=== PATIENT | female | born 2000 | race Caucasian/White ===

== ENCOUNTER 2022-09-07 10:27 | Outpatient (OUT) | payer BC, SELFPAY ==
[2022-09-07 11:30] LABS: HCG Quantitative 2866 mIU/mL
== END 2022-09-07 10:28 ==
PROVIDERS: PCP Family Medicine; Visit Provider Obstetrics & Gynecology
DX: N92.6 Irregular menstruation, unspecified (principal)
CPT/HCPCS: 36415; 84702

== ENCOUNTER 2022-09-09 10:34 | Outpatient (RCR) | payer BC, SELFPAY ==
[2022-09-09 12:00] LABS: HCG Quantitative 6195 mIU/mL
== END 2022-10-06 15:58 | disposition home or self-care (01) ==
LOC: LAB 10:34
PROVIDERS: Obstetrics & Gynecology; PCP Family Medicine
DX: N92.6 Irregular menstruation, unspecified (principal)
CPT/HCPCS: 36415; 84702

== ENCOUNTER 2022-09-16 14:49 | Outpatient (OUT) | payer BC, SELFPAY ==
--- NOTE | 2022-09-16 | US_ITS ---
[address] [address] Patient Name: CAROLYNN MACKEY MRN: [id number] date: 2000 Sex: F Assigned Patient Location: US Current Patient Location: US Accession/Order Number: [id number] Exam Date: 09/16/2022 15:00 Report Date: 09/16/2022 17:49 At the request of: RAMONE AN Procedure: US OB transvaginal EXAMINATION: US OB transvaginal HISTORY: MISSED PERIOD COMPARISON: No relevant comparison available. FINDINGS: Rasmussen intrauterine gestation Gestational sac: 1.57 cm, 5 weeks 6 days CRL: 4.2 mm, 6 weeks 1 day Yolk sac: 0.25 cm Heart rate: 106 bpm Cervix: Closed, 4.5 cm Uterus: Normal, anteverted, anteflexed The right ovary is normal Left ovary is not visualized Clinical age: 6 weeks 1 day Clinical NICOLE: 05/11/2023 . IMPRESSION: Viable rasmussen intrauterine gestation measuring 6 weeks 1 day Electronically authenticated by: CHEPE SAXENA Date: 09/16/2022 17:49
== END 2022-09-16 14:50 ==
LOC: US 14:51
PROVIDERS: PCP Family Medicine; Visit Provider Obstetrics & Gynecology
DX: Z34.91 Encounter for supervision of normal pregnancy, unspecified, first trimester (principal)
CPT/HCPCS: 76817

== ENCOUNTER 2022-10-14 16:09 | Outpatient (OUT) | payer BC, SELFPAY ==
[2022-10-14 16:55] LABS: Basophils Percent Auto 0.2 % (0.2-2.0); Eosinophils Percent Auto 0.4 % (0.9-7.0); Hematocrit 39.2 % (36.0-48.0); Hemoglobin 13.4 g/dL (12.0-16.0); Immature Granulocytes Abs Auto 0.03 10^3/uL (0.00-0.03); Immature Granulocytes Pct Auto 0.3 % (0.0-0.5); Lymphocytes Absolute Auto 1.4 10^3/uL (1.2-3.8); Lymphocytes Percent Auto 12.7 % (20.5-60.0); Mean Corpuscular HGB Conc 34.2 g/dL (29.9-35.2); Mean Corpuscular Volume 90.7 fL (81.0-99.0); Monocytes Absolute Auto 0.5 10^3/uL (0.3-0.8); Monocytes Percent Auto 4.1 % (1.7-12.0); Neutrophils Absolute Auto 9.2 10^3/uL (1.4-6.5); Neutrophils Percent Auto 82.3 % (43.0-75.0); Platelet Count 291 10^3/uL (150-450); Red Blood Count 4.32 10^6/uL (4.20-5.40); Red Cell Distribution Width 12.7 % (11.0-15.0); White Blood Count 11.1 10^3/uL (4.0-11.0)
[2022-10-14 17:07] LABS: Estimated Average Glucose 94 mg/dL; Glycohemoglobin A1C 4.9 % (4.5-6.2)
[2022-10-14 18:07] LABS: Thyroid Stimulating Hormone 1.999 uIU/mL (0.358-3.740)
[2022-10-16 06:09] LABS: HBsAg Screen Negative (Negative); HCV Ab Non Reactive (Non Reactive); HIV Ab/p24 Ag Screen Non Reactive (Non Reactive); Rubella Antibodies, IgG 9.02 index (Immune >0.99)
[2022-10-16 10:08] LABS: Rapid Plasma Reagin, Quant Non Reactive (NonRea<1:1)
== END 2022-10-14 16:10 | disposition home or self-care (01) ==
PROVIDERS: PCP Family Medicine; Visit Provider Obstetrics & Gynecology
DX: Z31.430 Encounter of female for testing for genetic disease carrier status for procreative management (principal); N92.5 Other specified irregular menstruation
CPT/HCPCS: 36415; 83036; 84443; 85025; 86592; 86706; 86762; 86803; 86850; 86900; 86901; 87086; 87389

== ENCOUNTER 2022-12-23 17:11 | Outpatient (OUT) | payer BC, OTHER, SELFPAY ==
--- NOTE | 2022-12-23 17:16 | US_ITS ---
[address] [address] Patient Name: CAROLYNN MACKEY MRN: [id number] date: 2000 Sex: F Assigned Patient Location: US Current Patient Location: Accession/Order Number: [id number] Exam Date: 12/23/2022 17:56 Report Date: 12/24/2022 15:38 At the request of: JOVANY ISABEL Procedure: US OB anatomy EXAMINATION: US OB transvaginal, US OB anatomy HISTORY: SECOND TRIMESTER Z34.92 COMPARISON: No relevant comparison available. TECHNIQUE: Transabdominal sonographic examination was performed for obstetrical and evaluation. FINDINGS: Number: 1 Heart Rate: 145.9 bpm H.B. /min Amniotic Fluid Volume: Subjectively normal Placental Location: ANTERIOR with lower margin 4.1 cm from os. Cervix Length: 5 cm , closed. ANATOMY: Normal Structures -cerebellum, choroid plexus, cisterna magna, lateral cerebral ventricles, orbits, midline falx, hard palate, four-chamber heart, RVOT, LVOT, stomach, kidneys, bladder, umbilical cord insertion into abdomen, three-vessel cord, cervical spine, thoracic spine, lumbar spine, sacral spine, right upper extremity, left upper extremity, right lower extremity, left lower extremity. SUBOPTIMALLY SEEN: None ABNORMALITIES: None BIOMETRY: BPD: 4.6 cm 19 weeks 6 days HC: 17.6 cm 20 weeks 1 days AC: 15.3 cm 20 weeks 4 days FL: 3.1 cm 19 weeks 6 days EFW:335.9 grams; FL/AC: 20.6 FL/BPD: 68.8 HC/AC: 1.1 GESTATIONAL AGE: Age by EDC: 20 weeks 1 days NICOLE by EDC: 05/11/2023 Age by current US: 20 weeks 1 days NICOLE by current US: 05/11/2023 US/US OB anatomy IMPRESSION: 1. Single live intrauterine with growth detailed above. Electronically authenticated by: LYNNETTE KENNEDY Date: 12/24/2022 15:38
--- NOTE | 2022-12-23 17:17 | US_ITS ---
[address] [address] Patient Name: CAROLYNN MACKEY MRN: [id number] date: 2000 Sex: F Assigned Patient Location: US Current Patient Location: Accession/Order Number: [id number] Exam Date: 12/23/2022 17:56 Report Date: 12/24/2022 15:38 At the request of: JOVANY ISABEL Procedure: US OB transvaginal EXAMINATION: US OB transvaginal, US OB anatomy HISTORY: SECOND TRIMESTER Z34.92 COMPARISON: No relevant comparison available. TECHNIQUE: Transabdominal sonographic examination was performed for obstetrical and evaluation. FINDINGS: Number: 1 Heart Rate: 145.9 bpm H.B. /min Amniotic Fluid Volume: Subjectively normal Placental Location: ANTERIOR with lower margin 4.1 cm from os. Cervix Length: 5 cm , closed. ANATOMY: Normal Structures -cerebellum, choroid plexus, cisterna magna, lateral cerebral ventricles, orbits, midline falx, hard palate, four-chamber heart, RVOT, LVOT, stomach, kidneys, bladder, umbilical cord insertion into abdomen, three-vessel cord, cervical spine, thoracic spine, lumbar spine, sacral spine, right upper extremity, left upper extremity, right lower extremity, left lower extremity. SUBOPTIMALLY SEEN: None ABNORMALITIES: None BIOMETRY: BPD: 4.6 cm 19 weeks 6 days HC: 17.6 cm 20 weeks 1 days AC: 15.3 cm 20 weeks 4 days FL: 3.1 cm 19 weeks 6 days EFW:335.9 grams; FL/AC: 20.6 FL/BPD: 68.8 HC/AC: 1.1 GESTATIONAL AGE: Age by EDC: 20 weeks 1 days NICOLE by EDC: 05/11/2023 Age by current US: 20 weeks 1 days NICOLE by current US: 05/11/2023 US/US OB transvaginal IMPRESSION: 1. Single live intrauterine with growth detailed above. Electronically authenticated by: LYNNETTE KENNEDY Date: 12/24/2022 15:38
== END 2022-12-23 17:12 | disposition home or self-care (01) ==
LOC: US 17:12
PROVIDERS: PCP Family Medicine; Visit Provider Physician Assistant
DX: Z34.92 Encounter for supervision of normal pregnancy, unspecified, second trimester (principal)
CPT/HCPCS: 76805; 76817

== ENCOUNTER 2023-01-05 12:39 | Emergency (ER) | payer BC, OTHER, SELFPAY ==
[2023-01-05 12:44] VITALS: BP 117/68; PULSE 70; RESP 15; TEMP 36.6; O2SAT 98; BMI 24.9
--- NOTE | 2023-01-05 12:48 | ED.GENADUL1 ---
HPI - General Adult General Chief complaint: Nausea/Vomiting/Diarrhea Stated complaint: VOMITING BLOOD 22 WEEKS Time Seen by Provider: 01/05/23 12:45 Source: patient Mode of arrival: walk-in History of Present Illness HPI narrative: 22-year-old female who is twenty-two weeks presented because she vomited some blood in it. She is no longer nauseous. No hematochezia or melena. She doesn't complain of abdominal pain. She's been feeling the baby move around. No fever or cough or shortness of breath. This happened today. No vaginal bleeding. Related Data Allergies Allergy/AdvReac Type Severity Reaction Status Date / Time No Known Drug Allergies Allergy Verified 01/05/23 12:57 Review of Systems ROS Narrative A ten point review of systems is negative except as noted above. Exam Narrative Exam Narrative: Nurses note and vital signs reviewed and patient is not hypoxic. General: The patient appears well and in no apparent distress. Patient is resting comfortably on cart. Skin: Warm, dry, no pallor noted. There is no rash noted. Head: Normocephalic, atraumatic Eye: Normal conjunctiva, no drainage Ears, Nose, Mouth, and Throat: oral mucosa is moist. Nares patent. Cardiovascular: Regular Rate and Rhythm Respiratory: Patient is in no distress, no accessory muscle use, lungs are clear to auscultation, no wheezing, rales or rhonchi Back: non-tender GI: gravid and soft and nontender Musculoskeletal: The patient has no evidence of calf tenderness, no pitting edema, symmetrical pulses noted bilaterally Neurological: A&O, normal speech Psychiatric: Cooperative Constitutional Vital Signs, click to edit/add: Last Vital Signs Temp 97.8 F 01/05/23 12:44 Pulse 70 01/05/23 12:44 Resp 15 01/05/23 12:44 BP 117/68 01/05/23 12:44 Pulse Ox 98 01/05/23 12:44 O2 Del Method Room Air 01/05/23 12:44 Course Vital Signs Vital signs: Vital Signs Temperature 97.8 F 01/05/23 12:44 Pulse Rate 70 01/05/23 12:44 Respiratory Rate 15 01/05/23 12:44 Blood Pressure 117/68 01/05/23 12:44 Pulse Oximetry 98 01/05/23 12:44 Oxygen Delivery Method Room Air 01/05/23 12:44 Temperature 97.8 F 01/05/23 12:44 Pulse Rate 70 01/05/23 12:44 Respiratory Rate 15 01/05/23 12:44 Blood Pressure 117/68 01/05/23 12:44 Pulse Oximetry 98 01/05/23 12:44 Oxygen Delivery Method Room Air 01/05/23 12:44 Medical Decision Making MDM Narrative Medical decision making narrative: The patient had hematemesis. Her hemoglobin is 12.7. She has had no recurrence of this issue here and has been able to drink Gatorade. Findings are discussed with the patient and her family and the case will be discussed with her PUBLIC SPEAKER. Differential Diagnosis Differential Diagnosis: hematemesis, ulcer, gastritis Lab Data Lab results reviewed: Yes I reviewed the patient's lab results Labs: Lab Results 01/05/23 Range/Units 12:54 WBC 13.6 H (4.0-11.0) 10^3/uL RBC 4.10 L (4.20-5.40) 10^6/uL Hgb 12.7 (12.0-16.0) g/dL Hct 37.9 (36.0-48.0) % MCV 92.4 (81.0-99.0) fL MCH 31.0 (26.7-34.0) pg MCHC 33.5 (29.9-35.2) g/dL RDW 13.0 (11.0-15.0) % Plt Count 248 (150-450) 10^3/uL MPV 9.5 (9.5-13.5) fL Neut % (Auto) 83.0 H (43.0-75.0) % Lymph % (Auto) 11.6 L (20.5-60.0) % [place] % (Auto) 4.0 (1.7-12.0) % Eos % (Auto) 0.7 L (0.9-7.0) % Baso % (Auto) 0.3 (0.2-2.0) % Neut # (Auto) 11.3 H (1.4-6.5) 10^3/uL Lymph # (Auto) 1.6 (1.2-3.8) 10^3/uL [place] # (Auto) 0.5 (0.3-0.8) 10^3/uL Eos # (Auto) 0.1 (0.0-0.7) 10^3/uL Baso # (Auto) 0.0 (0.0-0.1) 10^3/uL Abs Immat Gran (auto) 0.05 H (0.00-0.03) 10^3/uL Imm/Tot Granulo (auto) 0.4 (0.0-0.5) % Sodium 134 L (136-145) mmol/L Potassium 3.9 (3.5-5.1) mmol/L Chloride 100 (98-107) mmol/L Carbon Dioxide 24.2 (21.0-32.0) mmol/L Anion Gap 13.7 BUN 9.0 (7.0-18.0) mg/dL Creatinine 0.61 (0.55-1.02) mg/dL Est GFR ( Amer) >60 (>=60) Est GFR (Non-Af Amer) >60 (>=60) BUN/Creatinine Ratio 14.8 Glucose 86 (74-106) mg/dL Calcium 8.8 (8.5-10.1) mg/dL Discharge Plan Discharge Chief Complaint: Nausea/Vomiting/Diarrhea Clinical Impression: Hematemesis Patient Disposition: Home, Self-Care Time of Disposition Decision: 14:01 Condition: Good Mode of Transportation: Private Vehicle Instructions: Acute Nausea and Vomiting (ED), Hematemesis (ED) Stand Alone Forms: Portal Instructions Referrals: HASEEB CELAYA [Primary Care Provider] - 1 week
[2023-01-05 13:11] LABS: Basophils Percent Auto 0.3 % (0.2-2.0); Eosinophils Absolute Auto 0.1 10^3/uL (0.0-0.7); Eosinophils Percent Auto 0.7 % (0.9-7.0); Hematocrit 37.9 % (36.0-48.0); Hemoglobin 12.7 g/dL (12.0-16.0); Immature Granulocytes Abs Auto 0.05 10^3/uL (0.00-0.03); Immature Granulocytes Pct Auto 0.4 % (0.0-0.5); Lymphocytes Absolute Auto 1.6 10^3/uL (1.2-3.8); Lymphocytes Percent Auto 11.6 % (20.5-60.0); Mean Corpuscular HGB Conc 33.5 g/dL (29.9-35.2); Mean Corpuscular Volume 92.4 fL (81.0-99.0); Mean Platelet Volume 9.5 fL (9.5-13.5); Monocytes Absolute Auto 0.5 10^3/uL (0.3-0.8); Neutrophils Absolute Auto 11.3 10^3/uL (1.4-6.5); Platelet Count 248 10^3/uL (150-450); White Blood Count 13.6 10^3/uL (4.0-11.0)
[2023-01-05 13:20] LABS: Anion Gap 13.7; BUN Creatinine Ratio 14.8; Calcium 8.8 mg/dL (8.5-10.1); Carbon Dioxide 24.2 mmol/L (21.0-32.0); Chloride 100 mmol/L (98-107); Estimated GFR (African America >60 (>=60); Estimated GFR (Non-African Ame >60 (>=60); Glucose 86 mg/dL (74-106); Potassium 3.9 mmol/L (3.5-5.1); Sodium 134 mmol/L (136-145)
--- NOTE | 2023-01-05 13:37 | PC.NURSE ---
gatorade given to pt to use for PO challenge
== END 2023-01-05 14:20 | disposition home or self-care (01) ==
PROVIDERS: Emergency Provider Emergency Medicine; PCP Family Medicine
DX: O26.892 Other specified pregnancy related conditions, second trimester (principal); K92.0 Hematemesis; Z3A.22 22 weeks gestation of pregnancy
CPT/HCPCS: 36415; 80048; 85025; 99283

== ENCOUNTER 2023-02-22 07:51 | Outpatient (OUT) | payer BC, SELFPAY ==
[2023-02-22 08:57] LABS: Basophils Percent Auto 0.3 % (0.2-2.0); Eosinophils Absolute Auto 0.1 10^3/uL (0.0-0.7); Eosinophils Percent Auto 0.7 % (0.9-7.0); Hematocrit 33.7 % (36.0-48.0); Hemoglobin 11.2 g/dL (12.0-16.0); Immature Granulocytes Abs Auto 0.09 10^3/uL (0.00-0.03); Immature Granulocytes Pct Auto 0.8 % (0.0-0.5); Lymphocytes Absolute Auto 1.6 10^3/uL (1.2-3.8); Lymphocytes Percent Auto 13.2 % (20.5-60.0); Mean Corpuscular HGB Conc 33.2 g/dL (29.9-35.2); Mean Corpuscular Hemoglobin 30.9 pg (26.7-34.0); Mean Corpuscular Volume 93.1 fL (81.0-99.0); Mean Platelet Volume 9.4 fL (9.5-13.5); Monocytes Absolute Auto 0.6 10^3/uL (0.3-0.8); Monocytes Percent Auto 5.3 % (1.7-12.0); Neutrophils Absolute Auto 9.5 10^3/uL (1.4-6.5); Neutrophils Percent Auto 79.7 % (43.0-75.0); Platelet Count 236 10^3/uL (150-450); Red Blood Count 3.62 10^6/uL (4.20-5.40); Red Cell Distribution Width 13.1 % (11.0-15.0); White Blood Count 11.9 10^3/uL (4.0-11.0)
[2023-02-22 09:51] LABS: Glucose 1 Hour 105 mg/dL
--- OUTSIDE RECORDS SUMMARY | 2023-03-22 21:48 | XMS_ITS | CCD ---
Author Name Unknown Address [address] [place] [address] Organization [facility] Care Team Providers Care Hand Cigar Making Supervisor Name Role Phone BELTRAN, CATHERINE S Unavailable Unavailable BELTRAN, CATHERINE S Unavailable Unavailable BELTRAN, CATHERINE S Unavailable Unavailable BELTRAN, CATHERINE S Unavailable Unavailable SHARATH CARDOZO Attending Unavailable BRISEYDA BROCK Primary Care Unavailable KARASIK, DR GALVEZ Admitting Unavailable KARASIK, DR GALVEZ Attending Unavailable KARASIK, DR GALVEZ Consulting Unavailable KARASIK, DR GALVEZ Consulting Unavailable NATALIYA, DR PACK Attending Unavailable NATALIYA, DR PACK Admitting Unavailable KARASIK, DR GALVEZ Admitting Unavailable KARASIK, DR GALVEZ Attending Unavailable KARASIK, DR GALVEZ Consulting Unavailable CHALO, JOVANY Attending Unavailable NATALIYA, RAMONE Attending Unavailable Problems Active Problems Problem Classification Problem Date Documented Date Episodic/Chronic Immunizations and screening for infectious disease (4 sources) Encounter for screening for infections with a predominantly sexual mode of transmission; Translations: [ENC SCREEN INFECTIONS SEXL TRANSMS] Onset: 11-12-2021 Episodic Influenza (1 source) Influenza due to other identified influenza virus with other respiratory manifestations; Translations: [Influenza due to other identified influenza virus with other respiratory manifestations] Onset: 06-20-2018 Episodic Other infections; including parasitic (4 sources) Personal history of other infectious and parasitic diseases; Translations: [PERSONAL HX OTH INF AND PARASITIC DZ] Onset: 09-16-2021 Episodic Unclassified (1 source) Knee Pain / [id number]() Onset: 05-16-2017 Past or Other Problems Problem Classification Problem Date Documented Da te Episodic/Chronic Other non-traumatic joint disorders (1 source) Knee pain; Translations: [Knee Pain] Onset: 05-16-2017 Episodic Results Test Name Value Interpretation Reference Range Facil ity CHLAMYDIA/GONOCOCCUS OTTO (SW AB/URINE/PAPon 11-17-2021 Chlamydia trachomatis, OTTO Negative Normal Negative [facility] Comment on above: Performed By: #### C T/NGNA #### [facility] [address] [place] [address] Dr. Navneet Landeros Neisseria gonorrhoeae, OTTO Negative Normal Negative [facility] Comment on above: Performed By: #### C T/NGNA #### [facility] [address] [place] [address] Dr. Navneet Landeros VAGINITIS/VAGINOSIS DNA PROB Acosta 11-15-2021 Mei species Negative Normal Negative [facility] Comment on above: Performed By: #### V AGINT #### [facility] [address] [place] [address] Dr. Navneet Landeros Gardnerella vaginalis Positive Abnormal Negative [facility] Comment on above: Performed By: #### V AGINT #### [facility] [address] [place] [address] Dr. Navneet Landeros Trichomonas vaginalis Negative Normal Negative [facility] Comment on above: Performed By: #### V AGINT #### [facility] [address] [place] [address] Dr. Navneet Landeros CHLAMYDIA/GONOCOCCUS OTTO (SW AB/URINE/PAPon 09-19-2021 Chlamydia trachomatis, OTTO Negative Normal Negative [facility] Comment on above: Performed By: #### C T/NGNA #### [facility] [address] [place] [address] Dr. Navneet Landeros Neisseria gonorrhoeae, OTTO Negative Normal Negative [facility] Comment on above: Performed By: #### C T/NGNA #### [facility] [address] [place] [address] Dr. Navneet Landeros VAGINITIS/VAGINOSIS DNA PROB Acosta 09-18-2021 Mei species Negative Normal Negative [facility] Comment on above: Performed By: #### V AGINT #### [facility] [address] [place] [address] Dr. Navneet Landeros Gardnerella vaginalis Negative Normal Negative [facility] Comment on above: Performed By: #### V AGINT #### [facility] [address] [place] [address] Dr. Navneet Landeros Trichomonas vaginalis Negative Normal Negative [facility] Comment on above: Performed By: #### V AGINT #### [facility] [address] [place] [address] Dr. Navneet Landeros CHLAMYDIA/GONOCOCCUS OTTO ( AB/URINE/PAPon 05-02-2021 Chlamydia trachomatis, OTTO Positive Abnormal Negative [facility] Comment on above: Result Comment: . Performed By: #### C T/NGNA #### [facility] [address] [place] [address] Dr. Navneet Landeros Neisseria gonorrhoeae, OTTO Negative Normal Negative [facility] Comment on above: Performed By: #### C T/NGNA #### [facility] [address] [place] [address] Dr. Navneet Landeros VAGINITIS/VAGINOSIS DNA PROB Acosta 05-01-2021 Mei species Negative Normal Negative [facility] Comment on above: Performed By: #### V AGINT #### [facility] [address] [place] [address] Dr. Navneet Landeros Gardnerella vaginalis Positive Abnormal Negative [facility] Comment on above: Performed By: #### V AGINT #### [facility] [address] [place] [address] Dr. Navneet Landeros Trichomonas vaginalis Negative Normal Negative [facility] Comment on above: Performed By: #### V AGINT #### [facility] [address] [place] [address] Dr. Navneet Landeros Bowel Disorders [place] Atypical pANCA Negative Normal Negative [facility] Comment on above: Performed By: #### C OVID-19 JUNE, SOFIANEG, UHCG, ADDONUAPLUS #### [address] Bowel Disorders [place] Negative Normal Negative [facility] Comment on above: Performed By: #### C OVID-19 JUNE, SOFIANEG, UHCG, ADDONUAPLUS #### [address] Note Normal . [facility] Comment on above: Result Comment: Sugg estive of Crohn's disease. Subsequent testing with the Crohn's Disease Prognostic Profile ([id number]) that includes antiglycan antibodies AMCA, ALCA, ACCA, and Kathleen may aid in the differentiation of clinical forms of CD and prognosis of disease progression. Performed at: - [facility] [id number] Management Trainee Marketing: Darling Dubon MD, Phone: [phone] PERFORMED BY: [place] [address] PATHOLOGIST CHEMIST ENZYMES STEPHENIE THORPE M.D. Performed By: #### C OVID-19 JUNE, SOFIANEG, UHCG, ADDONUAPLUS #### [address] Saccharomyces cerevisiae, IgG 58.4 High 0.0-24 .9 [facility] Comment on above: Result Comment: Nega tive <20.0 Equivocal 20.1 - 24.9 Positive >or= 25.0 Performed By: #### C OVID-19 JUNE, SOFIANEG, UHCG, ADDONUAPLUS #### [address] C-Reactive Proteinon 021 C-Reactive Protein 0.6 mg/dL Normal 0.0-1.0 [facility] Comment on above: Result Comment: PERF ORMED BY: [place] [address] PATHOLOGIST CHEMIST ENZYMES STEPHENIE THORPE M.D. Performed By: #### C OVID-19 JUNE, SOFIANEG, UHCG, ADDONUAPLUS #### [address] Erythrocyte Sedimentation Ra ramez 02-18-2021 ESR (Bld) [Velocity] 2 mm/h Normal 0-19 [facility] Comment on above: Result Comment: PERF ORMED BY: [place] [address] PATHOLOGIST CHEMIST ENZYMES STEPHENIE THORPE M.D. Performed By: #### C OVID-19 JUNE, SOFIANEG, UHCG, ADDONUAPLUS #### [facility] [address] [place] [address] [place] HCG,Urineon 02-18-2021 Beta HCG ( test) Ql (U) Negative Normal [facility] Comment on above: Result Comment: PERF ORMED BY: [place] [address] PATHOLOGIST CHEMIST ENZYMES STEPHENIE THORPE M.D. Performed By: #### C OVID-19 JUNE, SOFIANEG, UHCG, ADDONUAPLUS #### [facility] [address] [id number] [facility] Benito 02-18-2021 L Specimen: [id number] Received: 02/19/21 Status: SONIA Lopez Num: [id number] Spec Type: Surgical Subm Dr: Charan Romo MD Tissues: A Colon Biopsy (ILEITIS BX) Procedures: HE Stain/2, Gross/Micro L4 Patient Age/Sex Location Account Attending Physician Deanna Isaac 20/F [id number] Charan Romo MD SPEC NUM: [id number] RECD: 02/19/21 STATUS: SONIA LOPEZ NUM: [id number] SIDRA: 02/18/21- DR: Charan Romo MD ENTERED: 02/19/[address] [facility] [address]: ARMAND TYPE: Surgical DEPT: S ORDERED: HE Stain/2, Gross/Micro L4 ORDERED: HE Stain/2, Gross/Micro L4 Pathological Diagnosis Ileum, biopsy: - 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 Entirely submitted in one cassette labeled A1. (SM/JS) Microscopic Description Two glass slides with H E stained material have been examined. The microscopic findings support the above pathologic diagnosis. [id number] Specimen: [id number] Received: 02/19/21 Status: SONIA Lopez Num: [id number] Spec Type: Surgical Subm Dr: hCaran Romo MD Tissues: A Colon Biopsy (ILEITIS BX) Procedures: HE Stain/2, Gross/Micro L4 Patient: Deanna Isaac [id number] (Continued) Signed (signature on file) Stephenie Thorpe MD 02/20/21 [facility] COVID-19 Antigenon 1 COVID-19 Antigen Healthcare Worker?: N June Reference June Reference Negative SARS-CoV+SARS-CoV-2 (COVID-19) Ag [Presence] in Respiratory specimen by Rapid immunoassay Negative for SARS Antigen by SATYA COVID19 Blank Space June Disclaimer Negative results, from patients with symptom June Disclaimer onset beyond five days, should be treated as June Disclaimer presumptive and confirmation with a molecular June Disclaimer assay, if necessary, for patient management, June Disclaimer may be performed. Negative results do not rule June Disclaimer out COVID-19 and should not be used as the sole June Disclaimer basis for treatment or patient management June Disclaimer decisions, including infection control decisions. June Disclaimer Negative results should be considered in the June Disclaimer context of a patient's recent exposures, history June Disclaimer and the presence of clinical signs and symptoms June Disclaimer consistent with COVID-19. COVID19 Blank Space June Disclaimer The June SARS Antigen SATYA does not differentiate June Disclaimer between SARS-CoV and SARS-CoV-2. COVID19 Blank Space June Disclaimer This test was developed and its performance June Disclaimer characteristic determined by [employer] and June Disclaimer validated at [facility]. This June Disclaimer test has not been FDA cleared or approved. This June Disclaimer test has been authorized by FDA under an Emergency Use June Disclaimer Authorization (EUA). This test has been validated June Disclaimer in accordance with the FDA's Guidance Document (Policy June Disclaimer for Diagnostics Testing in Laboratories Certified to June Disclaimer Perform High Complexity Testing under CLIA prior to June Disclaimer Emergency Use Authorization for Coronavirus June Disclaimer isease-2018 during the Public Health Emergency) June Disclaimer issued on July 05, 2019. This test is only authorized June Disclaimer for the duration of time the declaration that June Disclaimer circumstances exist justifying the authorization of June Disclaimer the emergency use of in vitro diagnostic tests for June Disclaimer detection of SARS-CoV-2 virus and/or diagnosis of June Disclaimer COVID-19 infection under section 564(b)(1) of the June Disclaimer Act, 21 U.S.C. 360bbb-3(b)(1), unless the June Disclaimer authorization is terminated or revoked sooner. PERFORMED BY: [place] [address] PATHOLOGIST CHEMIST ENZYMES STEPHENIE THORPE M.D. [facility] Comment on above: Performed By: #### C OVID-19 JUNE, SOFIANEG, UHCG, ADDONUAPLUS #### [address] June Ag Negativeon 02-17-20 21 June Ag Negative Negative Normal Negative [facility] Comment on above: Result Comment: This is a duplicate June SARS Antigen (SATYA) result to be used for statistical tracking purpose only. PERFORMED BY: [place] [address] PATHOLOGIST CHEMIST ENZYMES STEPHENIE THORPE M.D. Performed By: #### C OVID-19 JUNE, SOFIANEG, UHCG, ADDONUAPLUS #### [address] Basic Metabolic Panelon 11-0 Calcium [Mass/Vol] 9.5 mg/dL Normal 8.2-10.2 [facility] Comment on above: Performed By: #### L IPASE, MG, HEPATIC, CBC, TSH3, BMP #### [address] Chloride [Moles/Vol] 102 mmol/L Normal 95-114 [facility] Comment on above: Performed By: #### L IPASE, MG, HEPATIC, CBC, TSH3, BMP #### [facility] [address] CO2 [Moles/Vol] 22.6 mmol/L Normal 22.0-30.0 [facility] Comment on above: Performed By: #### L IPASE, MG, HEPATIC, CBC, TSH3, BMP #### [facility] [address] Creatinine [Mass/Vol] 0.77 mg/dL Normal 0.44-1.03 [facility] Comment on above: Performed By: #### L IPASE, MG, HEPATIC, CBC, TSH3, BMP #### [facility] [address] Creatinine Clr Calc Pharmacy 102.32 [facility] Comment on above: Performed By: #### L IPASE, MG, HEPATIC, CBC, TSH3, BMP #### [address] Estimated GFR ( Natasha > 60 [facility] Comment on above: Result Comment: GFR estimated reference range: According to KDOQI guidelines, <60 ml/min/1.73m2 is sufficient to diagnose a patient with chronic kidney disease. Performed By: #### L IPASE, MG, HEPATIC, CBC, TSH3, BMP #### [facility] [address] Estimated GFR (Non- Am > 60 [facility] Comment on above: Performed By: #### L IPASE, MG, HEPATIC, CBC, TSH3, BMP #### [address] Glucose [Mass/Vol] 93 mg/dL Normal 70-100 [facility] Comment on above: Result Comment: [place] om Glucose Reference Range is dependent on time and content of last meal. Glucose of more than 200 mg/dL in a nonstressed, ambulatory subject supports the diagnosis of Diabetes Mellitus. ADA recommended reference range Performed By: #### L IPASE, MG, HEPATIC, CBC, TSH3, BMP #### [facility] [address] Potassium [Moles/Vol] 3.8 mmol/L Normal 3.5-5.1 [facility] Comment on above: Performed By: #### L IPASE, MG, HEPATIC, CBC, TSH3, BMP #### [facility] [address] Sodium [Moles/Vol] 135 mmol/L Low 136-146 [facility] Comment on above: Performed By: #### L IPASE, MG, HEPATIC, CBC, TSH3, BMP #### [facility] [address] Urea nitrogen [Mass/Vol] 11 mg/dL Normal 9-23 [facility] Comment on above: Performed By: #### L IPASE, MG, HEPATIC, CBC, TSH3, BMP #### [facility] [address] COVID-19 Antigenon 1 COVID-19 Antigen Healthcare Worker?: N June Reference June Reference Negative SARS-CoV+SARS-CoV-2 (COVID-19) Ag [Presence] in Respiratory specimen by Rapid immunoassay Negative for SARS Antigen by SATYA COVID19 Blank Space June Disclaimer Negative results, from patients with symptom June Disclaimer onset beyond five days, should be treated as Jnue Disclaimer presumptive and confirmation with a molecular June Disclaimer assay, if necessary, for patient management, June Disclaimer may be performed. Negative results do not rule June Disclaimer out COVID-19 and should not be used as the sole June Disclaimer basis for treatment or patient management June Disclaimer decisions, including infection control decisions. June Disclaimer Negative results should be considered in the June Disclaimer context of a patient's recent exposures, history June Disclaimer and the presence of clinical signs and symptoms June Disclaimer consistent with COVID-19. COVID19 Blank Space June Disclaimer The June SARS Antigen SATYA does not differentiate June Disclaimer between SARS-CoV and SARS-CoV-2. COVID19 Blank Space June Disclaimer This test was developed and its performance June Disclaimer characteristic determined by [employer] and June Disclaimer validated at [facility]. This June Disclaimer test has not been FDA cleared or approved. This June Disclaimer test has been authorized by FDA under an Emergency Use June Disclaimer Authorization (EUA). This test has been validated June Disclaimer in accordance with the FDA's Guidance Document (Policy June Disclaimer for Diagnostics Testing in Laboratories Certified to June Disclaimer Perform High Complexity Testing under CLIA prior to June Disclaimer Emergency Use Authorization for Coronavirus June Disclaimer during the Public Health Emergency) June Disclaimer issued on July 05, 2019. This test is only authorized June Disclaimer for the duration of time the declaration that June Disclaimer circumstances exist justifying the authorization of June Disclaimer the emergency use of in vitro diagnostic tests for June Disclaimer detection of SARS-CoV-2 virus and/or diagnosis of June Disclaimer COVID-19 infection under section 564(b)(1) of the June Disclaimer Act, 21 U.S.C. 360bbb-3(b)(1), unless the June Disclaimer authorization is terminated or revoked sooner. PERFORMED BY: [facility] [place] [address] PATHOLOGIST CHEMIST ENZYMES STEPHENIE THORPE M.D. [facility] Comment on above: Performed By: #### C OVID-19 DENIZ WATKINS UHCG, SUNNIUAPLUS #### [address] Complete Blood Count Auto Di ffon 02-04-2021 Basophils (Bld) [#/Vol] 0.0 10*3/uL Normal 0.0-0.1 [facility] Comment on above: Result Comment: PERF ORMED BY: [place] [address] PATHOLOGIST CHEMIST ENZYMES STEPHENIE THORPE M.D. Performed By: #### L IPASE, MG, HEPATIC, CBC, TSH3, BMP #### [address] Basophils/100 WBC (Bld) 0.4 % Normal . [facility] Comment on above: Performed By: #### L IPASE, MG, HEPATIC, CBC, TSH3, BMP #### [address] Eosinophils (Bld) [#/Vol] 0.1 10*3/uL Normal 0.0-0.7 [facility] Comment on above: Performed By: #### L IPASE, MG, HEPATIC, CBC, TSH3, BMP #### [address] Eosinophils/100 WBC (Bld) 1.0 % Normal . [facility] Comment on above: Performed By: #### L IPASE, MG, HEPATIC, CBC, TSH3, BMP #### [address] Erythrocyte distribution wid th (RBC) [Ratio] 13.3 % Normal 11.9-15.3 [facility] Comment on above: Performed By: #### L IPASE, MG, HEPATIC, CBC, TSH3, BMP #### [address] Hematocrit (Bld) [Volume fraction] 39.9 % Normal 36.0-46.0 [facility] Comment on above: Performed By: #### L IPASE, MG, HEPATIC, CBC, TSH3, BMP #### [address] Hemoglobin (Bld) [Mass/Vol] 13.6 g/dL Normal 12.0-16. 0 [facility] Comment on above: Performed By: #### L IPASE, MG, HEPATIC, CBC, TSH3, BMP #### [address] Lymphocytes (Bld) [#/Vol] 1.2 10*3/uL Normal 1.20-4.8 [facility] Comment on above: Performed By: #### L IPASE, MG, HEPATIC, CBC, TSH3, BMP #### [address] Lymphocytes/100 WBC (Bld) 20.5 % Normal . [facility] Comment on above: Performed By: #### L IPASE, MG, HEPATIC, CBC, TSH3, BMP #### [address] MCH (RBC) [Entitic mass] 30.8 pg Normal 25.0-35.0 [facility] Comment on above: Performed By: #### L IPASE, MG, HEPATIC, CBC, TSH3, BMP #### [address] MCV (RBC) [Entitic vol] 90.8 fL Normal 78-102 F [facility] Comment on above: Performed By: #### L IPASE, MG, HEPATIC, CBC, TSH3, BMP #### [address] Mean Corpuscular HGB Conc 34.0 g/dL Normal 31.0-37.0 [facility] Comment on above: Performed By: #### L IPASE, MG, HEPATIC, CBC, TSH3, BMP #### [address] Monocytes (Bld) [#/Vol] 0.3 10*3/uL Normal 0.1-1.00 [facility] Comment on above: Performed By: #### L IPASE, MG, HEPATIC, CBC, TSH3, BMP #### [facility] [address] Monocytes/100 WBC (Bld) 5.3 % Normal . F [facility] Comment on above: Performed By: #### L IPASE, MG, HEPATIC, CBC, TSH3, BMP #### [facility] [address] Neutrophils (Bld) [#/Vol] 4.3 10*3/uL Normal 1.2-7.7 [facility] Comment on above: Performed By: #### L IPASE, MG, HEPATIC, CBC, TSH3, BMP #### [facility] [address] Neutrophils/100 WBC (Bld) 72.8 % Normal . [facility] Comment on above: Performed By: #### L IPASE, MG, HEPATIC, CBC, TSH3, BMP #### [address] Nucleated RBC/100 WBC (Bld) [Ratio] 0.1 % Normal 0-0.5 [facility] Comment on above: Performed By: #### L IPASE, MG, HEPATIC, CBC, TSH3, BMP #### [address] Platelet mean volume (Bld) [Entitic vol] 6.8 fL Normal 6.3-10.7 [facility] Comment on above: Performed By: #### L IPASE, MG, HEPATIC, CBC, TSH3, BMP #### [address] Platelets (Bld) [#/Vol] 332 10*3/uL Normal 150-450 [facility] Comment on above: Performed By: #### L IPASE, MG, HEPATIC, CBC, TSH3, BMP #### [address] RBC (Bld) [#/Vol] 4.39 10*6/uL Normal 4.10-5.10 [facility] Comment on above: Performed By: #### L IPASE, MG, HEPATIC, CBC, TSH3, BMP #### [facility] [address] [place] [address] [place] WBC (Bld) [#/Vol] 5.9 10*3/uL Normal 4.5-13.5 [facility] Comment on above: Performed By: #### L IPASE, MG, HEPATIC, CBC, TSH3, BMP #### [facility] [address] [place] [address] [place] Dipstick and Microscopicon 1 04-06-2020 Appearance (U) Clear Normal Clear [facility] Comment on above: Order Comment: Name Collection Type:: Clean-Voided Midstream Performed By: #### C OVID-19 JUNE, SOFIANEG, UHCG, ADDONUAPLUS #### [address] Bacteria,Urine None Seen Normal None Seen [facility] Comment on above: Order Comment: Name Collection Type:: Clean-Voided Midstream Performed By: #### C OVID-19 JUNE, SOFIANEG, UHCG, ADDONUAPLUS #### [facility] [address] [place] [address] [place] Bilirubin,Urine Negative Normal Negative [facility] Comment on above: Order Comment: Name Collection Type:: Clean-Voided Midstream Performed By: #### C OVID-19 JUNE, SOFIANEG, UHCG, ADDONUAPLUS #### [facility] [address] [place] [address] [place] Color (U) Yellow Normal Yellow [facility] Comment on above: Order Comment: Name Collection Type:: Clean-Voided Midstream Performed By: #### C OVID-19 JUNE, SOFIANEG, UHCG, ADDONUAPLUS #### [facility] [address] [place] [address] [place] Glucose Ql (U) Normal Normal Normal [facility] Comment on above: Order Comment: Name Collection Type:: Clean-Voided Midstream Performed By: #### C OVID-19 JUNE, SOFIANEG, UHCG, ADDONUAPLUS #### [address] [place] [address] [place] Hyaline Casts,Urine 0-8 Normal 0-8 [facility] Comment on above: Order Comment: Name Collection Type:: Clean-Voided Midstream Performed By: #### C OVID-19 JUNE, SOFIANEG, UHCG, ADDONUAPLUS #### [address] Ketones Ql (U) 3+ High Negative [facility] Comment on above: Order Comment: Name Collection Type:: Clean-Voided Midstream Performed By: #### C OVID-19 JUNE, SOFIANEG, UHCG, ADDONUAPLUS #### [address] Leukocyte esterase Test stri p Ql (U) Negative Normal Negative [facility] Comment on above: Order Comment: Name Collection Type:: Clean-Voided Midstream Performed By: #### C OVID-19 JUNE, SOFIANEG, UHCG, ADDONUAPLUS #### [address] Nitrite,Urine Negative Normal Negative [facility] Comment on above: Order Comment: Name Collection Type:: Clean-Voided Midstream Performed By: #### C OVID-19 JUNE, SOFIANEG, UHCG, ADDONUAPLUS #### [place] [address] [place] Occult Blood,Urine 2+ High Negative [facility] Comment on above: Order Comment: Name Collection Type:: Clean-Voided Midstream Performed By: #### C OVID-19 JUNE, SOFIANEG, UHCG, ADDONUAPLUS #### [place] [address] [place] pH (U) 5.5 [pH] Normal 5.0-9.0 [facility] Comment on above: Order Comment: Name Collection Type:: Clean-Voided Midstream Performed By: #### C OVID-19 JUNE, SOFIANEG, UHCG, ADDONUAPLUS #### [place] [address] [place] Protein,Urine Negative Normal Negative [facility] Comment on above: Order Comment: Name Collection Type:: Clean-Voided Midstream Performed By: #### C OVID-19 JUNE, SOFIANEG, UHCG, ADDONUAPLUS #### [address] RBC,Urine 10-19 High 0-4 [facility] Comment on above: Order Comment: Name Collection Type:: Clean-Voided Midstream Performed By: #### C OVID-19 JUNE, SOFIANEG, UHCG, ADDONUAPLUS #### [address] Specificy [place],Urine 1.023 Normal 1.001-1.030 [facility] Comment on above: Order Comment: Name Collection Type:: Clean-Voided Midstream Performed By: #### C OVID-19 JUNE, SOFIANEG, UHCG, ADDONUAPLUS #### [address] Squamous Epithelial Cell,Urine 5-9 High 0-2 [facility] Comment on above: Order Comment: Name Collection Type:: Clean-Voided Midstream Performed By: #### C OVID-19 JUNE, SOFIANEG, UHCG, ADDONUAPLUS #### [address] Urobilinogen,Urine Normal Normal Normal [facility] Comment on above: Order Comment: Name Collection Type:: Clean-Voided Midstream Performed By: #### C OVID-19 JUNE, SOFIANEG, UHCG, ADDONUAPLUS #### [address] WBC,Urine 3-4 Normal 0-4 [facility] Comment on above: Order Comment: Name Collection Type:: Clean-Voided Midstream Performed By: #### C OVID-19 JUNE, SOFIANEG, UHCG, ADDONUAPLUS #### [address] ECG 12 lead ECGon 11-03-2021 ECG 12 lead ECG [facility] Main [place] [address] [place] [id number] Electrocardiograph Report Signed Patient: Deanna Isaac MR#: [id number] : 2000 Acct:[id number] Age/Sex: 20 / F ADM Date: 02/04/21 Loc: ER Room: Type: [facility] ER Attending Dr: Ordering Provider: Micheal Hernandez DO Date of Service: 02/04/2106/23/1051 ECG/ECG 12 lead ECG: Abdominal Pain Copies to: Test Reason : Blood Pressure : / mmHG Vent. Rate : 070 BPM Atrial Rate : 070 BPM P-R Int : 118 ms QRS Dur : 074 ms QT Int : 398 ms P-R-T Axes : 035 082 052 degrees QTc Int : 429 ms Normal sinus rhythm Confirmed by Micheal HERNANDEZ DO ([id number]) on 02/04/2021 1:25:48 PM Referred By: Electronically Signed By:Micheal HERNANDEZ DO Transcribed By: MUS Signed By Micheal Hernandez DO 1 04/06/20 1325 [facility] HCG,Urineon 02-04-2021 Beta HCG ( test) Ql (U) Negative [facility] Comment on above: Order Comment: Name Collection Type:: Clean-Voided Midstream Result Comment: PERF ORMED BY: [place] [address] PATHOLOGIST CHEMIST ENZYMES STEPHENIE THORPE M.D. Performed By: #### C OVID-19 JUNE, SOFIANEG, UHCG, ADDONUAPLUS #### [facility] [address] [place] [address] [facility] Hepatic Panelon 02-04-2021 Albumin [Mass/Vol] 4.1 g/dL Normal 3.2-5.5 [facility] Comment on above: Performed By: #### L IPASE, MG, HEPATIC, CBC, TSH3, BMP #### [facility] [address] [place], [place] [id number] [facility] Albumin/Globulin [Mass ratio] 1.3 {ratio} Normal [facility] Comment on above: Performed By: #### L IPASE, MG, HEPATIC, CBC, TSH3, BMP #### [facility] [address] [place] [address] ALP [Catalytic activity/Vol] 55 U/L Normal 32-92 [facility] Comment on above: Performed By: #### L IPASE, MG, HEPATIC, CBC, TSH3, BMP #### [facility] [address] [place] [address] ALT [Catalytic activity/Vol] 23 U/L Normal 10-60 [facility] Comment on above: Performed By: #### L IPASE, MG, HEPATIC, CBC, TSH3, BMP #### [address] AST [Catalytic activity/Vol] 23 U/L Normal 10-42 [facility] Comment on above: Performed By: #### L IPASE, MG, HEPATIC, CBC, TSH3, BMP #### [address] Bilirubin [Mass/Vol] 1.2 mg/dL Normal 0.3-1.2 [facility] Comment on above: Performed By: #### L IPASE, MG, HEPATIC, CBC, TSH3, BMP #### [address] Bilirubin,Indirect 1.1 mg/dL Normal [facility] Comment on above: Performed By: #### L IPASE, MG, HEPATIC, CBC, TSH3, BMP #### [address] Bilirubin.indirect [Mass/Vol] 0.1 mg/dL Normal 0.0-0. 4 [facility] Comment on above: Performed By: #### L IPASE, MG, HEPATIC, CBC, TSH3, BMP #### [address] Globulin (S) [Mass/Vol] 3.2 g/dL Normal [facility] Comment on above: Performed By: #### L IPASE, MG, HEPATIC, CBC, TSH3, BMP #### [facility] [address] Protein [Mass/Vol] 7.3 g/dL Normal 6.1-7.9 [facility] Comment on above: Performed By: #### L IPASE, MG, HEPATIC, CBC, TSH3, BMP #### [facility] [address] Lipaseon 02-04-2021 Lipase [Catalytic activity/Vol] 24.0 U/L Normal 22-5 1 [facility] Comment on above: Performed By: #### L IPASE, MG, HEPATIC, CBC, TSH3, BMP #### [address] Magnesiumon 02-04-2021 Magnesium [Mass/Vol] 2.1 mg/dL Normal 1.6-2.6 [facility] Comment on above: Performed By: #### L IPASE, MG, HEPATIC, CBC, TSH3, BMP #### [address] June Ag Negativeon 02-05-20 21 June Ag Negative Negative Normal Negative [facility] Comment on above: Result Comment: This is a duplicate June SARS Antigen (SATYA) result to be used for statistical tracking purpose only. PERFORMED BY: [place] [address] PATHOLOGIST CHEMIST ENZYMES STEPHENIE THORPE M.D. Performed By: #### C OVID-19 JUNE, SOFIANEG, UHCG, ADDONUAPLUS #### [address] Thyroid Stimulating Hormoneo n 02-04-2021 TSH Qn 1.87 m[IU]/L Normal 0.45-5.33 [facility] Comment on above: Result Comment: PERF ORMED BY: [place] [address] PATHOLOGIST CHEMIST ENZYMES STEPHENIE THORPE M.D. Performed By: #### L IPASE, MG, HEPATIC, CBC, TSH3, BMP #### [facility] [address] [place] [id number] [facility] Flu A/B Ag Detectionon 06-20 Flu A/B Ag Detection Specimen Descriptio n .NASOPHARYNGEAL SWAB Special Requests NOT REPORTED Direct Exam POSITIVE for Influenza A Antigen NEGATIVE for Influenza B Antigen Report Status FINAL 06/20/2018 [facility] Comment on above: Performed By: #### F LUAD #### [facility] [address] [place] [address] Management Trainee Marketing: Avery Hanson MD PROCEDUREon 05-16-2017 [facility] NOTES [facility] Encounters Encounter Date Encounter Type Care Provider Facility Start: 03-08-2023 End: 03-08-2023 ambulatory RAMONE AN Not Available Start: 02-22-2023 End: 02-22-2023 ambulatory JOVANY ISABEL Not Available Start: 11-12-2021 End: 11-12-[address] LENNY SEVILLA Facility:[facility] Start: 09-16-2021 End: 09-16-[address] LENNY SEVILLA Facility:[facility] Start: 04-29-2021 End: 04-29-[address] LENNY SEVILLA Facility:[facility] Start: 06-20-2018 End: 06-20-2018 Emergency department patient visit SHARATH CARDOZO [facility] Start: 05-16-2017 Ambulatory [facility] Start: 05-16-2017 Ambulatory [facility] Procedures Date Procedure Procedure Detail Performing Clinician Start: 06-20-2018 [facility] influenza [facility] HEMANT CARDOZO Payers Date Payer Category Payer Medicaid [id number] 2022 Unknown [id number] 2018 Unknown [id number] 2002 Unknown [id number] 2.16.84 [id number] 2002 Unknown [id number] 2.16.84 [id number] 2002 Unknown [id number] 2002 Unknown [id number] 1976 Unknown [id number] 2.16.84 [id number] 1976 Unknown [id number] 2.16.84 [id number] 1959 Unknown [id number] Summary Purpose Family History No Family History Records FoundNo Family History Records FoundNo Family History Records FoundNo Family History Records FoundNo Family History Records Found Advance Directives No Advanced Directives Records FoundNo Advanced Directives Records FoundNo Advanced Directives Records FoundNo Advanced Directives Records FoundNo Advanced Directives Records Found Additional Source Comments INFORMATION SOURCE (unrecogn ized section and content) DATE CREATED AUTHOR 09/26/2017 [facility] DATE CREATED AUTHOR AUTHOR'S ORGANIZ ATION 06/21/2018 [facility] DATE CREATED AUTHOR AUTHOR'S ORGANIZ ATION 06/11/2021 [facility] DATE CREATED AUTHOR AUTHOR'S ORGANIZ ATION 11/17/2021 [facility] DATE CREATED AUTHOR AUTHOR'S ORGANIZ ATION 03/10/2023 [facility] FOR RECORDS PERTAINING TO PATIENTS WHO ARE OR HAVE BEEN ENROLLED IN A CHEMICAL DEPENDENCY/SUBSTANCEABUSE PROGRAM, SOME INFORMATION MAY BE OMITTED. This clinical summary was aggregated from multiple sources. Caution should be exercised in using it in the provision of clinical care. This summary normalizes information from multiple sources, and as a consequence, information in this document may materially change the coding, format and clinical context of patient data. In addition, data may be omitted in some cases. CLINICAL DECISIONS SHOULD BE BASED ON THE PRIMARY CLINICAL RECORDS. [employer] provides no warranty or guarantee of the accuracy or completeness of information in this document.
== END 2023-02-22 07:52 | disposition home or self-care (01) ==
PROVIDERS: PCP Family Medicine; Visit Provider Obstetrics & Gynecology
DX: Z34.92 Encounter for supervision of normal pregnancy, unspecified, second trimester (principal)
CPT/HCPCS: 36415; 82950; 85025

== ENCOUNTER 2023-02-22 08:54 | Outpatient (OUT) | payer BC, OTHER, SELFPAY ==
--- NOTE | 2023-02-22 09:00 | US_ITS ---
[address] [address] Patient Name: CAROLYNN MACKEY MRN: [id number] date: 2000 Sex: F Assigned Patient Location: US Current Patient Location: US Accession/Order Number: [id number] Exam Date: 02/22/2023 09:00 Report Date: 02/22/2023 15:38 At the request of: RAMONE AN Procedure: US OB growth EXAMINATION: US OB growth HISTORY: SIZE INCONSISTENT WITH DATES COMPARISON: Ultrasound OB anatomy 12/23/2022 FINDINGS: Heart Rate: 141.0 bpm Number: 1.0 Position: TRANSVERSE Amniotic Fluid Volume: 14.3 cm Maximum Vertical Pocket: 4.1 cm BIOMETRY: BPD: 6.9 cm cm; 27 weeks 6 days; 13% HC: 27.5 cmcm; 30 weeks 0 days ; 53% AC: 24.1 cm cm; 28 weeks 3 days; 30% FL: 5.4 cm cm; 28 weeks 3 days; 23% EFW: 1242.0 grams; 26% FL/AC: 22.2 FL/BPD: 77.2 HC/AC: 1.1 GESTATIONAL AGE: Age by EDC: 28 weeks 6 days NICOLE by EDC: 05/11/2023 Age by US: 28 weeks 5 days NICOLE by US: 05/12/2023 US/US OB growth IMPRESSION: 1. Single live intrauterine with growth detailed above. Electronically authenticated by: LYNNETTE KENNEDY Date: 02/22/2023 15:38
== END 2023-02-22 08:55 | disposition home or self-care (01) ==
PROVIDERS: PCP Family Medicine; Visit Provider Obstetrics & Gynecology
DX: O26.843 Uterine size-date discrepancy, third trimester (principal); Z3A.28 28 weeks gestation of pregnancy
CPT/HCPCS: 36415; 76816; 82950; 85025

== ENCOUNTER 2023-03-17 08:51 | Observation (INO) | payer BC, OTHER, SELFPAY ==
[2023-03-17 09:15] VITALS: BP 114/78; PULSE 89; RESP 16; TEMP 36.9
[2023-03-17 09:30] VITALS: O2SAT 99
[2023-03-17 09:48] LABS: Bilirubin Urine NEGATIVE (NEGATIVE); Blood Urine NEGATIVE (NEGATIVE); Color Urine LT. YELLOW (YELLOW); Glucose Urine UA NEGATIVE (NEGATIVE); Ketones Urine TRACE mg/dL (NEGATIVE); Leukocyte Esterase Urine MODERATE (NEGATIVE); Nitrite Urine NEGATIVE (NEGATIVE); Protein Urine NEGATIVE (NEG/TRACE); Urobilinogen Urine 0.2 EU/dL (0.2-1.0)
[2023-03-17 09:49] LABS: Clarity Urine SLIGHTLY CLOUDY (CLEAR); Urine Microscopic Indicated YES
[2023-03-17 10:05] LABS: Bacteria Urine LARGE #/HPF (NONE SEEN); Mucus Urine NONE SEEN (NONE SEEN); RBC Urine NONE SEEN #/HPF (0-2); Squamous Epithelial Cell Urine FEW #/LPF (NONE/RARE)
[2023-03-17 10:06] LABS: Urine Culture Indicated YES
[2023-03-17] MEDS: ONDANSETRON 4 MG RAPDIS TABLET SL (11:02)
[2023-03-17 11:08] LABS: Basophils Percent Auto 0.3 % (0.2-2.0); Eosinophils Absolute Auto 0.1 10^3/uL (0.0-0.7); Hematocrit 30.8 % (36.0-48.0); Hemoglobin 10.2 g/dL (12.0-16.0); Immature Granulocytes Abs Auto 0.05 10^3/uL (0.00-0.03); Immature Granulocytes Pct Auto 0.4 % (0.0-0.5); Lymphocytes Percent Auto 7.7 % (20.5-60.0); Mean Corpuscular HGB Conc 33.1 g/dL (29.9-35.2); Mean Corpuscular Hemoglobin 30.4 pg (26.7-34.0); Mean Corpuscular Volume 91.7 fL (81.0-99.0); Mean Platelet Volume 9.5 fL (9.5-13.5); Monocytes Absolute Auto 0.8 10^3/uL (0.3-0.8); Monocytes Percent Auto 6.6 % (1.7-12.0); Neutrophils Absolute Auto 10.5 10^3/uL (1.4-6.5); Platelet Count 236 10^3/uL (150-450); Red Blood Count 3.36 10^6/uL (4.20-5.40); Red Cell Distribution Width 13.2 % (11.0-15.0); White Blood Count 12.5 10^3/uL (4.0-11.0)
[2023-03-17 11:17] LABS: SARS-CoV-2 Ag NEGATIVE (NEGATIVE)
--- NOTE | 2023-03-17 13:18 | P.CN_ITS ---
Consult Note: HPI Data of Consult Requesting Physician: Charissa Arauz MD Primary Care Provider: HASEEB CELAYA Consult Narrative Reason for consult: vertigo Narrative: patient is a G1 at thirty-two weeks who presented to the birthing center today for dizziness and vomiting ?1. She reports she started having pain in her right ear as well as some upper respiratory symptoms such as runny nose congestion. She denies any fevers but states that she did have some chills. She denies any sore throat. Patient was evaluated by the on-call BALL THREAD MACHINE TENDER and baby checked out with a normal checkup. I was counseled A to address ear pain and dizziness. Patient denies any ALLERGIES, she says she's been healthy most of her life and denies any past medical history. cc:: CC: Charissa Arauz MD Review of Systems ROS Narrative ROS: a complete review of systems were reviewed with patient and are positive as below or listed in History of Chief Complaint. General: no fever, but chills, no night sweats Head: no headache, trauma, visual changes, some nausea and vomiting Skin: no reported rashes, itching or sores Eyes: no blurriness of vision Ears: no reported hearing loss, but vertigo, right earache, and tinnitus Throat: no sore throat, hoarseness, swelling of neck, or tongue pain Heart: no chest pain Lungs: no shortness of breath or cough GI: vomiting/nausea Urinary: no urinary urgency, frequency or pain Neuro: no numbness or tingling HEM: no bleeding issues or bruising ENDO: no thyroid problems Psych: no anxiety or depression Meds Home Medications and Allergies Home Medications Medication Instructions Recorded Confirmed Type amoxicillin 875 mg tablet 875 mg PO BID 7 days #14 tabs 03/17/23 Rx ondansetron 4 mg disintegrating 4 mg PO Q8H PRN nausea and 03/17/23 Rx tablet vomiting 4 days #12 tabs Allergies Allergy/AdvReac Type Severity Reaction Status Date / Time No Known Drug Allergies Allergy Verified 01/05/23 12:57 Exam Narrative Exam Narrative: General: Patient is alert, and oriented to person, place and time with normal affect, proper hygiene Skin: no visible rashes, or ulcers Head: atraumatic, acephalic Eyes: PERRLA, no nystagmus present, conjunctiva clear, no scleral icterus Ears: normal Tympanic Membrane on the left but right shows TM perforation with some erythema and partial effusion, no discharge Nose: symmetric, no discharge, no maxillary or frontal sinus tenderness Mouth/Throat: no erythema, exudate, or tonsillar enlargement, normal dentition Neck: no masses palpated, normal thyroid, no JVD or audible carotid bruits Heart: Normal rate and rhythm, no murmurs/rubs/gallops Lungs: no audible wheezes, crackles and normal breath sounds all lung amor Constitutional Vital Signs, click to edit/add: Last Vital Signs Temp 98.4 F 03/17/23 09:15 Pulse 89 03/17/23 09:15 Resp 16 03/17/23 09:15 BP 114/78 03/17/23 09:15 Pulse Ox 99 03/17/23 09:30 O2 Del Method Room Air 03/17/23 09:30 Results Labs Labs: Short CBC 03/17/23 Range/Units 10:48 WBC 12.5 H (4.0-11.0) 10^3/uL Hgb 10.2 L (12.0-16.0) g/dL Hct 30.8 L (36.0-48.0) % Plt Count 236 (150-450) 10^3/uL Urine 03/17/23 Range/Units 09:05 Urine Color Lt. yellow (YELLOW) Urine Clarity Slightly cloudy A (CLEAR) Urine pH 7.0 (5.0-9.0) Ur Specific [place] 1.010 (1.005-1.025) Urine Protein Negative (NEG/TRACE) mg/dL Urine Glucose (UA) Negative (NEGATIVE) mg/dL Assessment and Plan Assessment and Plan (1) Perforation of right tympanic membrane due to otitis media: (2) Acute sinusitis: Qualifiers: Sinusitis location: maxillary Recurrence: non-recurrent Qualified Code(s): J01.00 - Acute maxillary sinusitis, unspecified (3) Nausea & vomiting: Qualifiers: Vomiting type: unspecified Qualified Code(s): R11.2 - Nausea with vomit ing, unspecified Plan discussed the lack of safety of medications during and Categories, will place on amoxicillin 875 mg twice a day ?7 days. She may also take a antihistamine such as Benadryl at nighttime to help with the congestion symptoms. I also provided her Zofran 4 mg to take as needed for the nausea and vomiting so that she may take her antibiotic. She is to either return to the hospital/Emergency Room/OB triage with any worsening signs or symptoms. Mild elevation in white blood cell count can be accounted for during . RX's sent to pharmacy.
[2023-03-17 14:00] VITALS: BP 108/64; PULSE 90; RESP 16; TEMP 36.9
[2023-03-17 16:11] LABS: SARS-CoV-2 NAA NOT DETECTED (NOT DETECTE)
== END 2023-03-17 14:15 | disposition home or self-care (01) ==
PROVIDERS: Admitting Provider Obstetrics & Gynecology; PCP Family Medicine; Visit Provider Obstetrics & Gynecology
DX: O26.893 Other specified pregnancy related conditions, third trimester (principal); O99.513 Diseases of the respiratory system complicating pregnancy, third trimester; J01.00 Acute maxillary sinusitis, unspecified; H66.91 Otitis media, unspecified, right ear; H72.91 Unspecified perforation of tympanic membrane, right ear; R11.2 Nausea with vomiting, unspecified; Z3A.32 32 weeks gestation of pregnancy; Z20.822 Contact with and (suspected) exposure to COVID-19
CPT/HCPCS: 36415; 59025; 81001; 85025; 87086; 87635; 87811; G0378; G0379

== ENCOUNTER 2023-04-12 19:54 | Outpatient (REF) | payer BC, OTHER, SELFPAY ==
--- OUTSIDE RECORDS SUMMARY | 2023-04-12 19:59 | XMS_ITS | CCD ---
Author Name Unknown Address [address] [place] [id number] Organization [facility] Care Team Providers Care Campaign Advisor Name Role Phone BELTRAN, CATHERINE S Unavailable [...] [employer] Consult[employer] Unavailable CHALO, JOVANY Attending Unavailable CHALO, JOVANY Attending Unavailable NATALIYA, RAMONE Attending Unavailable CHALO, JOVANY Attending Unavailable Problems Active Problems Problem Classification [...] Episodic Unclassified (1 source) Knee Pain / [id number]() Onset: 05-16-2017 Past or Other Problems Problem Classification Problem Date Documented Da te Episodic/Chronic Other non-traumatic joint disorders (1 source) Knee pain; Translations: [Knee Pain] Onset: 05-16-2017 Episodic Results Test Name Value Interpretation Reference Range Facil ity CHLAMYDIA/GONOCOCCUS OTTO (SW AB/URINE/PAPon 11-17-2021 Chlamydia trachomatis, OTTO Negative Normal Negative [facility] Comment on above: Performed By: #### C T/NGNA #### [facility] [address] [place] [address] Dr. Navneet Landeros Neisseria gonorrhoeae, OTTO Negative Normal Negative [facility] Comment on above: Performed By: #### C T/NGNA #### [facility] [address] [place] [address] Dr. Navneet Landeros VAGINITIS/VAGINOSIS DNA PROB Acosta 11-15-2021 Mei species Negative Normal Negative [facility] Comment on above: Performed By: #### V AGINT #### [facility] [address] [place] [address] Dr. Navneet Landeros Gardnerella vaginalis Positive Abnormal Negative [facility] Comment on above: Performed By: #### V AGINT #### [facility] [address] [place] [address] Dr. Navneet Landeros Trichomonas vaginalis Negative Normal Negative [facility] Comment on above: Performed By: #### V AGINT #### [facility] [address] [place] [address] Dr. Navneet Landeros CHLAMYDIA/GONOCOCCUS OTTO (SW AB/URINE/PAPon 09-19-2021 Chlamydia trachomatis, OTTO Negative Normal Negative [facility] Comment on above: Performed By: #### C T/NGNA #### [facility] [address] [place] [address] Dr. Navneet Landeros Neisseria gonorrhoeae, OTTO Negative Normal Negative [facility] Comment on above: Performed By: #### C T/NGNA #### [facility] [address] [place] [address] Dr. Navneet Landeros VAGINITIS/VAGINOSIS DNA PROB Acosta 09-18-2021 Mei species Negative Normal Negative [facility] Comment on above: Performed By: #### V AGINT #### [facility] [address] [place] [address] Dr. Navneet Landeros Gardnerella vaginalis Negative Normal Negative [facility] Comment on above: Performed By: #### V AGINT #### [facility] [address] [place] [address] Dr. Navneet Landeros Trichomonas vaginalis Negative Normal Negative [facility] Comment on above: Performed By: #### V AGINT #### [facility] [address] [place] [address] Dr. Navneet Landeros CHLAMYDIA/GONOCOCCUS OTTO (SW AB/URINE/PAPon 05-02-2021 Chlamydia trachomatis, OTTO Positive Abnormal Negative [facility] Comment on above: Result Comment: . Performed By: #### C T/NGNA #### [facility] [address] [place] [address] Dr. Navneet Landeros Neisseria gonorrhoeae, OTTO Negative Normal Negative [facility] Comment on above: Performed By: #### C T/NGNA #### [facility] [address] [place] [address] Dr. Navneet Landeros VAGINITIS/VAGINOSIS DNA PROB Acosta 05-01-2021 Mei species Negative Normal Negative [facility] Comment on above: Performed By: #### V AGINT #### [facility] [address] [place] [address] Dr. Navneet Landeros Gardnerella vaginalis Positive Abnormal Negative [facility] Comment on above: Performed By: #### V AGINT #### [facility] [address] [place] [address] Dr. Navneet Landeros Trichomonas vaginalis Negative Normal Negative [facility] Comment on above: Performed By: #### V AGINT #### [facility] [address] [place] [address] Dr. Navneet Landeros Bowel Disorders Cascadeon Atypical pANCA Negative Normal Negative [facility] Comment on above: Performed By: #### C OVID-19 JUNE, SOFIANEG, UHCG, ADDONUAPLUS #### [facility] [address] Bowel Disorders [place] Negative Normal Negative [facility] Comment on above: Performed By: #### C OVID-19 JUNE, SOFIANEG, UHCG, ADDONUAPLUS #### [address] Note Normal . [facility] Comment on above: Result Comment: Sugg estive of Crohn's disease. Subsequent testing with the Crohn's Disease Prognostic Profile (021107) that includes antiglycan antibodies AMCA, ALCA, ACCA, and Kathleen may aid in the differentiation of clinical forms of CD and prognosis of disease progression. Performed at: - [address] [id number] Underground Foreman: Darling Dubon MD, Phone: [phone] PERFORMED BY: [place] [address] PATHOLOGIST CHIEF SCIENCE OFFICER STEPHENIE THORPE M.D. Performed By: #### C OVID-19 JUNE, SOFIANEG, UHCG, ADDONUAPLUS #### [address] Saccharomyces cerevisiae, IgG 58.4 High 0.0-24.9 [facility] Comment on above: Result Comment: Nega tive <20.0 Equivocal 20.1 - 24.9 Positive >or= 25.0 Performed By: #### C OVID-19 JUNE, SOFIANEG, UHCG, ADDONUAPLUS #### [address] C-Reactive Proteinon 021 C-Reactive Protein 0.6 mg/dL Normal 0.0-1.0 [facility] Comment on above: Result Comment: PERF ORMED BY: [place] [address] PATHOLOGIST CHIEF SCIENCE OFFICER STEPHENIE THORPE M.D. Performed By: #### C OVID-19 JUNE, SOFIANEG, UHCG, ADDONUAPLUS #### [address] Erythrocyte Sedimentation Ra ramez 02-18-2021 ESR (Bld) [Velocity] 2 mm/h Normal 0-19 [facility] Comment on above: Result Comment: PERF ORMED BY: [place] [address] PATHOLOGIST CHIEF SCIENCE OFFICER STEPHENIE THORPE M.D. Performed By: #### C OVID-19 JUNE, SOFIANEG, UHCG, ADDONUAPLUS #### [facility] [address] [place] [id number] [place] HCG,Urineon 02-18-2021 Beta HCG ( test) Ql (U) Negative Normal [facility] Comment on above: Result Comment: PERF ORMED BY: [place] [address] PATHOLOGIST CHIEF SCIENCE OFFICER STEPHENIE THORPE M.D. Performed By: #### C OVID-19 JUNE, [facility]FI[facility]G, [facility] #### [facility] [address] [place] [id number] [facility] Benito 02-18-2021 L - -------- Specimen: [id number] Received: 02/19/21 Status: SONIA Lopez Num: [id number] Spec Type: Surgical Subm Dr: Charan Romo MD Tissues: A Colon Biopsy (ILEITIS BX) Procedures: HE Stain/2, Gross/Micro L4 -------- Patient Age/Sex Location Account Attending Physician -------- Deanna Isaac 20/F [id number] Charan Romo MD -------- SPEC NUM: [id number] RECD: 02/19/21 STATUS: SONIA LOPEZ NUM: [id number] SIDRA: 02/18/21- DR: Charan Romo MD ENTERED: 02/19/21 [facility] DR: ARMAND TYPE: Surgical DEPT: S [...] microscopic findings support the above pathologic diagnosis. [id number] -------- -------- Specimen: [id number] Received: 02/19/21 Status: SONIA Lopez Num: [id number] Spec Type: Surgical Subm Dr: Charan Romo MD Tissues: A Colon Biopsy (ILEITIS BX) Procedures: HE Stain/2, Gross/Micro L4 -------- Patient: Deanna Isaac [id number] (Continued) -------- Signed (signature on file) Stephenie Thorpe MD 02/20/21 1038 [facility] COVID-19 Antigenon 1 COVID-19 Antigen Healthcare Worker?: [...] its performance June Disclaimer characteristic determined by [employer] and June Disclaimer validated at [facility]. This June Disclaimer test has not been [...] is terminated or revoked sooner. PERFORMED BY: [place] [address] PATHOLOGIST CHIEF SCIENCE OFFICER STEPHENIE THORPE M.D. [facility] Comment on above: Performed By: #### C OVID-19 JUNE, SOFIANEG, UHCG, ADDONUAPLUS #### [address] June Ag Negativeon 02-17-20 21 June Ag Negative Negative Normal Negative [facility] Comment on above: Result Comment: This is a duplicate June SARS Antigen (SATYA) result to be used for statistical tracking purpose only. PERFORMED BY: [place] [address] PATHOLOGIST CHIEF SCIENCE OFFICER STEPHENIE THORPE M.D. Performed By: #### C OVID-19 JUNE, SOFIANEG, UHCG, ADDONUAPLUS #### [address] Basic Metabolic Panelon 11-0 Calcium [Mass/Vol] 9.5 mg/dL Normal 8.2-10.2 [facility] Comment on above: Performed By: #### L IPASE, MG, HEPATIC, CBC, TSH3, BMP #### [address] Chloride [Moles/Vol] 102 mmol/L Normal 95-114 [facility] Comment on above: Performed By: #### L IPASE, MG, HEPATIC, CBC, TSH3, BMP #### [facility] [address] CO2 [Moles/Vol] 22.6 mmol/L Normal 22.0-30.0 [facility] Comment on above: Performed By: #### L IPASE, MG, HEPATIC, CBC, TSH3, BMP #### [facility] [address] Creatinine [Mass/Vol] 0.77 mg/dL Normal 0.44-1.03 [facility] Comment on above: Performed By: #### L IPASE, MG, HEPATIC, CBC, TSH3, BMP #### [facility] [address] Creatinine Clr Calc Pharmacy 102.32 [facility] Comment on above: Performed By: #### L IPASE, MG, HEPATIC, CBC, TSH3, BMP #### [address] Estimated GFR ( Natasha > 60 [facility] Comment on above: Result Comment: GFR estimated reference range: According to KDOQI guidelines, <60 ml/min/1.73m2 is sufficient to diagnose a patient with chronic kidney disease. Performed By: #### L IPASE, MG, HEPATIC, CBC, TSH3, BMP #### [address] Estimated GFR (Non- Am > 60 [facility] Comment on above: Performed By: #### L IPASE, MG, HEPATIC, CBC, TSH3, BMP #### [address] Glucose [Mass/Vol] 93 mg/dL Normal 70-100 [facility] Comment on above: Result Comment: [facility] om Glucose Reference Range is dependent on time and content of last meal. Glucose of more than 200 mg/dL in a nonstressed, ambulatory subject supports the diagnosis of Diabetes Mellitus. ADA recommended reference range Performed By: #### L IPASE, MG, HEPATIC, CBC, TSH3, BMP #### [address] Potassium [Moles/Vol] 3.8 mmol/L Normal 3.5-5.1 [facility] Comment on above: Performed By: #### L IPASE, MG, HEPATIC, CBC, TSH3, BMP #### [facility] [address] Sodium [Moles/Vol] 135 mmol/L Low 136-146 [facility] Comment on above: Performed By: #### L IPASE, MG, HEPATIC, CBC, TSH3, BMP #### [facility] [address] Urea nitrogen [Mass/Vol] 11 mg/dL Normal 9-23 [facility] Comment on above: Performed By: #### L IPASE, MG, HEPATIC, CBC, TSH3, BMP #### [facility] [address] COVID-19 Antigenon 1 COVID-19 Antigen Healthcare [...] its performance June Disclaimer characteristic determined by [employer] and June Disclaimer validated at [facility]. This June Disclaimer test has not been [...] is terminated or revoked sooner. PERFORMED BY: [facility] [place] [address] PATHOLOGIST CHIEF SCIENCE OFFICER STEPHENIE THORPE M.D. [facility] Comment on above: Performed By: #### C OVID-19 DENIZ WATKINS UHCG, ADDONUAPLUS #### [address] Complete Blood Count Auto Di ffon 02-04-2021 Basophils (Bld) [#/Vol] 0.0 10*3/uL Normal 0.0-0.1 [facility] Comment on above: Result Comment: PERF ORMED BY: [place] [address] PATHOLOGIST CHIEF SCIENCE OFFICER STEPHENIE THORPE M.D. Performed By: #### L IPASE, MG, HEPATIC, CBC, TSH3, BMP #### [address] Basophils/100 WBC (Bld) 0.4 % Normal . [facility] Comment on above: Performed By: #### L IPASE, MG, HEPATIC, CBC, TSH3, BMP #### [address] Eosinophils (Bld) [#/Vol] 0.1 10*3/uL Normal 0.0-0.7 [facility] Comment on above: Performed By: #### L IPASE, MG, HEPATIC, CBC, TSH3, BMP #### [address] Eosinophils/100 WBC (Bld) 1.0 % Normal . [facility] Comment on above: Performed By: #### L IPASE, MG, HEPATIC, CBC, TSH3, BMP #### [address] Erythrocyte distribution width (RBC) [Ratio] 13.3 % Normal 11.9-15.3 [facility] Comment on above: Performed By: #### L IPASE, MG, HEPATIC, CBC, TSH3, BMP #### [address] Hematocrit (Bld) [Volume fraction] 39.9 % Normal 36.0-46.0 [facility] Comment on above: Performed By: #### L IPASE, MG, HEPATIC, CBC, TSH3, BMP #### [address] Hemoglobin (Bld) [Mass/Vol] 13.6 g/dL Normal 12.0-16.0 [facility] Comment on above: Performed By: #### L IPASE, MG, HEPATIC, CBC, TSH3, BMP #### [address] Lymphocytes (Bld) [#/Vol] 1.2 10*3/uL Normal 1.20-4.8 [facility] Comment on above: Performed By: #### L IPASE, MG, HEPATIC, CBC, TSH3, BMP #### [address] Lymphocytes/100 WBC (Bld) 20.5 % Normal . [facility] Comment on above: Performed By: #### L IPASE, MG, HEPATIC, CBC, TSH3, BMP #### [address] MCH (RBC) [Entitic mass] 30.8 pg Normal 25.0-35.0 [facility] Comment on above: Performed By: #### L IPASE, MG, HEPATIC, CBC, TSH3, BMP #### [address] MCV (RBC) [Entitic vol] 90.8 fL Normal 78-102 [facility] Comment on above: Performed By: #### L IPASE, MG, HEPATIC, CBC, TSH3, BMP #### [address] Mean Corpuscular HGB Conc 34.0 g/dL Normal 31.0-37.0 [facility] Comment on above: Performed By: #### L IPASE, MG, HEPATIC, CBC, TSH3, BMP #### [address] Monocytes (Bld) [#/Vol] 0.3 10*3/uL Normal 0.1-1.00 [facility] Comment on above: Performed By: #### L IPASE, MG, HEPATIC, CBC, TSH3, BMP #### [address] [place] [address] [place] Monocytes/100 WBC (Bld) 5.3 % Normal . [facility] Comment on above: Performed By: #### L IPASE, MG, HEPATIC, CBC, TSH3, BMP #### [address] Neutrophils (Bld) [#/Vol] 4.3 10*3/uL Normal 1.2-7.7 [facility] Comment on above: Performed By: #### L IPASE, MG, HEPATIC, CBC, TSH3, BMP #### [address] Neutrophils/100 WBC (Bld) 72.8 % Normal . [facility] Comment on above: Performed By: #### L IPASE, MG, HEPATIC, CBC, TSH3, BMP #### [address] Nucleated RBC/100 WBC (Bld) [Ratio] 0.1 % Normal 0-0.5 [facility] Comment on above: Performed By: #### L IPASE, MG, HEPATIC, CBC, TSH3, BMP #### [facility] [address] [place] [address] Platelet mean volume (Bld) [Entitic vol] 6.8 fL Normal 6.3-10.7 [facility] Comment on above: Performed By: #### L IPASE, MG, HEPATIC, CBC, TSH3, BMP #### [facility] [address] [place] [address] [place] Platelets (Bld) [#/Vol] 332 10*3/uL Normal 150-450 [facility] Comment on above: Performed By: #### L IPASE, MG, HEPATIC, CBC, TSH3, BMP #### [facility] [address] [place] [address] [place] RBC (Bld) [#/Vol] 4.39 10*6/uL Normal 4.10-5.10 [facility] Comment on above: Performed By: #### L IPASE, MG, HEPATIC, CBC, TSH3, BMP #### [facility] [address] WBC (Bld) [#/Vol] 5.9 10*3/uL Normal 4.5-13.5 [facility] Comment on above: Performed By: #### L IPASE, MG, HEPATIC, CBC, TSH3, BMP #### [facility] [address] [place] [address] [place] Dipstick and Microscopicon 1 04-06-2020 Appearance (U) Clear Normal Clear [facility] Comment on above: Order Comment: Name Collection Type:: Clean-Voided Midstream Performed By: #### C OVID-19 JUNE, SOFIANEG, UHCG, ADDONUAPLUS #### [address] Bacteria,Urine None Seen Normal None Seen [facility] Comment on above: Order Comment: Name Collection Type:: Clean-Voided Midstream Performed By: #### C OVID-19 JUNE, SOFIANEG, UHCG, ADDONUAPLUS #### [facility] [address] [place] [address] [place] Bilirubin,Urine Negative Normal Negative [facility] Comment on above: Order Comment: Name Collection Type:: Clean-Voided Midstream Performed By: #### C OVID-19 JUNE, SOFIANEG, UHCG, ADDONUAPLUS #### [facility] [address] [place] [address] Color (U) Yellow Normal Yellow [facility] Comment on above: Order Comment: Name Collection Type:: Clean-Voided Midstream Performed By: #### C OVID-19 JUNE, SOFIANEG, UHCG, ADDONUAPLUS #### [facility] [address] [place] [address] [place] Glucose Ql (U) Normal Normal Normal [facility] Comment on above: Order Comment: Name Collection Type:: Clean-Voided Midstream Performed By: #### C OVID-19 JUNE, SOFIANEG, UHCG, ADDONUAPLUS #### [facility] [address] [place] [address] [place] Hyaline Casts,Urine 0-8 Normal 0-8 [facility] Comment on above: Order Comment: Name Collection Type:: Clean-Voided Midstream Performed By: #### C OVID-19 JUNE, SOFIANEG, UHCG, ADDONUAPLUS #### [facility] [address] [place] [address] Ketones Ql (U) 3+ High Negative [facility] Comment on above: Order Comment: Name Collection Type:: Clean-Voided Midstream Performed By: #### C OVID-19 JUNE, SOFIANEG, UHCG, ADDONUAPLUS #### [facility] [address] [place] [address] Leukocyte esterase Test strip Ql (U) Negative Normal Negative [facility] Comment on above: Order Comment: Name Collection Type:: Clean-Voided Midstream Performed By: #### C OVID-19 JUNE, SOFIANEG, UHCG, ADDONUAPLUS #### [facility] [address] [place] [address] [place] Nitrite,Urine Negative Normal Negative [facility] Comment on above: Order Comment: Name Collection Type:: Clean-Voided Midstream Performed By: #### C OVID-19 JUNE, SOFIANEG, UHCG, ADDONUAPLUS #### [facility] [address] [place] [address] [place] Occult Blood,Urine 2+ High Negative [facility] Comment on above: Order Comment: Name Collection Type:: Clean-Voided Midstream Performed By: #### C OVID-19 JUNE, SOFIANEG, UHCG, ADDONUAPLUS #### [facility] [address] [place] [address] [place] pH (U) 5.5 [pH] Normal 5.0-9.0 [facility] Comment on above: Order Comment: Name Collection Type:: Clean-Voided Midstream Performed By: #### C OVID-19 JUNE, SOFIANEG, UHCG, ADDONUAPLUS #### [facility] [address] [place] [address] [place] Protein,Urine Negative Normal Negative [facility] Comment on above: Order Comment: Name Collection Type:: Clean-Voided Midstream Performed By: #### C OVID-19 JUNE, SOFIANEG, UHCG, ADDONUAPLUS #### [facility] [address] [place] [address] RBC,Urine 10-19 High 0-4 [facility] Comment on above: Order Comment: Name Collection Type:: Clean-Voided Midstream Performed By: #### C OVID-19 JUNE, SOFIANEG, UHCG, ADDONUAPLUS #### [address] Specificy [place],Urine 1.023 Normal 1.001-1.030 [facility] Comment on above: Order Comment: Name Collection Type:: Clean-Voided Midstream Performed By: #### C OVID-19 JUNE, SOFIANEG, UHCG, ADDONUAPLUS #### [facility] [address] [place] [address] Squamous Epithelial Cell,Urine 5-9 High 0-2 [facility] Comment on above: Order Comment: Name Collection Type:: Clean-Voided Midstream Performed By: #### C OVID-19 JUNE, SOFIANEG, UHCG, ADDONUAPLUS #### [facility] [address] [place] [address] Urobilinogen,Urine Normal Normal Normal [facility] Comment on above: Order Comment: Name Collection Type:: Clean-Voided Midstream Performed By: #### C OVID-19 JUNE, SOFIANEG, UHCG, ADDONUAPLUS #### [facility] [address] [place] [address] WBC,Urine 3-4 Normal 0-4 [facility] Comment on above: Order Comment: Name Collection Type:: Clean-Voided Midstream Performed By: #### C OVID-19 JUNE, SOFIANEG, UHCG, ADDONUAPLUS #### [facility] [address] [place] [address] [place] ECG 12 lead ECGon 02-04-2021 ECG 12 lead ECG [facility] [address] Electrocardiograph Report Signed Patient: Deanna Isaac MR#: [id number] 146 : 2000 Acct:[id number] Age/Sex: 20 / F ADM Date: 02/04/21 Loc: ER Room: Type: [facility] ER Attending Dr: Ordering Provider: Micheal Hernandez [...] sinus rhythm Confirmed by Micheal HERNANDEZ DO ([id number]) on 02/04/2021 1:25:48 PM Referred By: Electronically Signed By:Micheal HERNANDEZ DO Transcribed By: MUS Signed By Micheal Hernandez DO 1 04/06/20 1325 [facility] HCG,Urineon 02-04-2021 Beta HCG ( test) Ql (U) Negative [facility] Comment on above: Order Comment: Name Collection Type:: Clean-Voided Midstream Result Comment: PERF ORMED BY: [place] [address] PATHOLOGIST CHIEF SCIENCE OFFICER STEPHENIE THORPE M.D. Performed By: #### C OVID-19 JUNE, SOFIANEG, UHCG, ADDONUAPLUS #### [facility] [address] [place] [address] Hepatic Panelon 02-04-2021 Albumin [Mass/Vol] 4.1 g/dL Normal 3.2-5.5 [facility] Comment on above: Performed By: #### L IPASE, MG, HEPATIC, CBC, TSH3, BMP #### [facility] [address] [place] [address] Albumin/Globulin [Mass ratio] 1.3 {ratio} [facility] Comment on above: Performed By: #### L IPASE, MG, HEPATIC, CBC, TSH3, BMP #### [facility] [address] ALP [Catalytic activity/Vol] 55 U/L Normal 32-92 [facility] Comment on above: Performed By: #### L IPASE, MG, HEPATIC, CBC, TSH3, BMP #### [facility] [address] ALT [Catalytic activity/Vol] 23 U/L Normal 10-60 [facility] Comment on above: Performed By: #### L IPASE, MG, HEPATIC, CBC, TSH3, BMP #### [address] AST [Catalytic activity/Vol] 23 U/L Normal 10-42 [facility] Comment on above: Performed By: #### L IPASE, MG, HEPATIC, CBC, TSH3, BMP #### [address] Bilirubin [Mass/Vol] 1.2 mg/dL Normal 0.3-1.2 [facility] Comment on above: Performed By: #### L IPASE, MG, HEPATIC, CBC, TSH3, BMP #### [place] [address] [place] Bilirubin,Indirect 1.1 mg/dL Normal [facility] Comment on above: Performed By: #### L IPASE, MG, HEPATIC, CBC, TSH3, BMP #### [place] [address] [place] Bilirubin.indirect [Mass/Vol] 0.1 mg/dL Normal 0.0-0.4 [facility] Comment on above: Performed By: #### L IPASE, MG, HEPATIC, CBC, TSH3, BMP #### [address] Globulin (S) [Mass/Vol] 3.2 g/dL Normal [facility] Comment on above: Performed By: #### L IPASE, MG, HEPATIC, CBC, TSH3, BMP #### [place] [address] [place] Protein [Mass/Vol] 7.3 g/dL Normal 6.1-7.9 [facility] Comment on above: Performed By: #### L IPASE, MG, HEPATIC, CBC, TSH3, BMP #### [address] Lipaseon 02-04-2021 Lipase [Catalytic activity/Vol] 24.0 U/L Normal 22-51 [facility] Comment on above: Performed By: #### L IPASE, MG, HEPATIC, CBC, TSH3, BMP #### [address] Magnesiumon 02-04-2021 Magnesium [Mass/Vol] 2.1 mg/dL Normal 1.6-2.6 [facility] Comment on above: Performed By: #### L IPASE, MG, HEPATIC, CBC, TSH3, BMP #### [address] June [employer] Negativeon 02-05-20 21 June Ag Negative Negative Normal Negative [facility] Comment on above: Result Comment: This is a duplicate June SARS Antigen (SATYA) result to be used for statistical tracking purpose only. PERFORMED BY: [place] [address] PATHOLOGIST CHIEF SCIENCE OFFICER STEPHENIE THORPE M.D. Performed By: #### C OVID-19 JUNE, SOFIANEG, UHCG, ADDONUAPLUS #### [address] Thyroid Stimulating Hormoneo n 02-04-2021 TSH Qn 1.87 m[IU]/L Normal 0.45-5.33 [facility] Comment on above: Result Comment: PERF ORMED BY: [place] [address] PATHOLOGIST CHIEF SCIENCE OFFICER STEPHENIE THORPE M.D. Performed By: #### L IPASE, MG, HEPATIC, CBC, TSH3, BMP #### [address] Flu A/B Ag Detectionon 06-20 Flu A/B Ag Detection Specimen Description .NASOPHARYNGEAL SWAB Special Requests NOT REPORTED Direct Exam POSITIVE for Influenza A Antigen NEGATIVE for Influenza B Antigen Report Status FINAL 06/20/2018 [facility] Comment on above: Performed By: #### F TAYLOR #### [facility] [address] [place] [address] Underground Foreman: Avery Hanson MD PROCEDUREon 05-16-2017 [facility] Encounters Encounter Date Encounter Type Care Provider Facility Start: 04-06-2023 End: 04-06-2023 ambulatory JOVANY CHALO Not Available Start: 03-23-2023 End: 03-23-2023 ambulatory JOVANY CHALO Not Available Start: 03-08-2023 End: 03-08-2023 ambulatory RAMONE NATALIYA Not Available Start: 02-22-2023 End: 02-22-2023 ambulatory JOVANY ISABEL Not Available Start: 11-12-2021 End: 11-12-[address] LENNY SEVILLA Facility:[facility] Start: 09-16-2021 End: 09-16-[address] LENNY SEVILLA Facility:[facility] Start: 04-29-2021 End: 04-29-[address] LENNY SEVILLA Facility:[facility] Start: 06-20-2018 End: 06-20-2018 Emergency department patient visit SHARATH CARDOZO [facility] Start: 05-16-[address] [facility] Start: 05-16-[address] [facility] Procedures Date Procedure Procedure Detail Performing Clinician Start: 06-20-2018 [facility] influenza MARIXA CARDOZO Payers Date Payer Category Payer Medicaid [id number] 2022 Unknown [id number] 2018 Unknown [id number] 2002 Unknown [id number] 2.16.84 [id number] 2002 Unknown [id number] [id number] 2002 Unknown [id number] 2.16.840 .[id number] 2002 Unknown [id number] 2.16.840 .[id number] 2002 Unknown [id number] 2.16.840 .[id number] 2002 Unknown [id number] 2.16.840 .[id number] 1976 Unknown [id number] 2.16.84 [id number] 1976 Unknown [id number] 2.16.84 [id number] 1959 Unknown [id number] Summary Purpose Family History No Family History Records FoundNo Family History Records FoundNo Family History Records FoundNo Family History Records FoundNo Family History Records Found Advance Directives No Advanced Directives Records FoundNo Advanced Directives Records FoundNo Advanced Directives Records FoundNo Advanced Directives Records FoundNo Advanced Directives Records Found Additional Source Comments INFORMATION SOURCE (unrecogn ized section and content) DATE CREATED AUTHOR 09/26/2017 [facility] DATE CREATED AUTHOR AUTHOR'S ORGANIZ ATION 06/21/2018 [facility] DATE CREATED AUTHOR AUTHOR'S ORGANIZ ATION 06/11/2021 [facility] DATE CREATED AUTHOR AUTHOR'S ORGANIZ ATION 11/17/2021 [facility] DATE CREATED AUTHOR AUTHOR'S ORGANIZ ATION 04/07/2023 [facility] FOR RECORDS PERTAINING TO PATIENTS WHO ARE [...] BE BASED ON THE PRIMARY CLINICAL RECORDS. [facility]. provides no warranty or guarantee of the accuracy or completeness of information in this document.
== END 2023-04-12 19:55 | disposition home or self-care (01) ==
LOC: LAB 19:54
PROVIDERS: PCP Family Medicine; Visit Provider Obstetrics & Gynecology
DX: Z34.93 Encounter for supervision of normal pregnancy, unspecified, third trimester (principal)
CPT/HCPCS: 87081; 87150; 87186

== ENCOUNTER 2023-05-11 04:59 | Inpatient (IN) | payer BC, OTHER, SELFPAY ==
[2023-05-11] VITALS (19 sets, daily range): BP systolic 110–132; BP diastolic 60–88; PULSE 62–96; RESP 14–20; TEMP 36.3–36.9
--- OUTSIDE RECORDS SUMMARY | 2023-05-11 05:03 | XMS_ITS | CCD ---
Author Name Unknown Address [address] [place] [id number] Organization [facility] Care Team Providers Care Driller Helper Name Role Phone BELTRAN, CATHERINE S Unavailable Unavailable BELTRAN, CATHERINE S Unavailable Unavailable BELTARN, CATHERINE S Unavailable Unavailable BELTRAN, CATHERINE S [...] JOVANY Attending Unavailable NATALIYA, RAMONE Attending Unavailable NATALIYA, RAMONE Attending Unavailable NATALIYA, RAMONE Attending Unavailable NATALIYA, RAMONE Attending Unavailable CHALO, JOVANY Attending Unavailable NATALIYA, [...] Episodic Unclassified (1 source) Knee Pain / [id number]() Onset: 05-16-2017 Past or Other Problems Problem Classification Problem Date Documented Da te Episodic/Chronic Other non-traumatic joint disorders (1 source) Knee pain; Translations: [Knee Pain] Onset: 05-16-2017 Episodic Results Test Name Value Interpretation Reference Range Facil thai CHLAMYDIA/GONOCOCCUS OTTO (SW AB/URINE/PAPon 11-17-2021 Chlamydia trachomatis, OTTO Negative Normal Negative [facility] Comment on above: Performed By: #### C T/NGNA #### [facility] [address] [address] [address] Navneet Landeros Neisseria gonorrhoeae, OTTO Negative Normal Negative [facility] Comment on above: Performed By: #### C T/NGNA #### [facility] [address] [place] [address] Dr. Navneet Landeros VAGINITIS/VAGINOSIS DNA PROB Acosta 11-15-2021 Mei species Negative Normal Negative [facility] Comment on above: Performed By: #### V AGINT #### [facility] [address] [place] [address] Dr. Navneet Landeros Gardnerella vaginalis Positive Abnormal Negative [facility] Comment on above: Performed By: #### V AGINT #### [facility] [address] [place] [address] Dr. Navneet Landeros Trichomonas vaginalis Negative Normal Negative [facility] Comment on above: Performed By: #### V AGINT #### [facility] [address] [place] [address] Dr. Navneet Landeros CHLAMYDIA/GONOCOCCUS OTTO (SW AB/URINE/PAPon 09-19-2021 Chlamydia trachomatis, OTTO Negative Normal Negative [facility] Comment on above: Performed By: #### C T/NGNA #### [facility] [address] [place] [address] Dr. Navneet Landeros Neisseria gonorrhoeae, OTTO Negative Normal Negative [facility] Comment on above: Performed By: #### C T/NGNA #### [facility] [address] [place] [address] Dr. Navneet Landeros VAGINITIS/VAGINOSIS DNA PROB Acosta 09-18-2021 Mei species Negative Normal Negative [facility] Comment on above: Performed By: #### V AGINT #### [facility] [address] [place] [address] Dr. Navneet Landeros Gardnerella vaginalis Negative Normal Negative [facility] Comment on above: Performed By: #### V AGINT #### [facility] [address] [place] [address] Dr. Navneet Landeros Trichomonas vaginalis Negative Normal Negative [facility] Comment on above: Performed By: #### V AGINT #### [facility] [address] [place] [address] Dr. Navneet Landeros CHLAMYDIA/GONOCOCCUS OTTO (SW AB/URINE/PAPon 05-02-2021 Chlamydia trachomatis, OTTO Positive Abnormal Negative [facility] Comment on above: Result Comment: . Performed By: #### C T/NGNA #### [facility] [address] [place] [address] Dr. Navneet Landeros Neisseria gonorrhoeae, OTTO Negative Normal Negative [facility] Comment on above: Performed By: #### C T/NGNA #### [facility] [address] [place] [address] Dr. Navneet Landeros VAGINITIS/VAGINOSIS DNA PROB Acosta 05-01-2021 Mei species Negative Normal Negative [facility] Comment on above: Performed By: #### V AGINT #### [facility] [address] [place] [address] Dr. Navneet Landeros Gardnerella vaginalis Positive Abnormal Negative [facility] Comment on above: Performed By: #### V AGINT #### [facility] [address] [place] [address] Dr. Navneet Landeros Trichomonas vaginalis Negative Normal Negative [facility] Comment on above: Performed By: #### V AGINT #### [facility] [address] [place] [address] Dr. Navneet Landeros Bowel Disorders [place] Atypical pANCA Negative Normal Negative [facility] Comment on above: Performed By: #### C OVID-19 JUNE, SOFIANEG, UHCG, ADDONUAPLUS #### [facility] [address] Bowel Disorders United Negative Normal Negative [facility] Comment on above: Performed By: #### C OVID-19 JUNE, SOFIANEG, UHCG, ADDONUAPLUS #### [facility] [address] [place] [address] Note Normal . [facility] Comment on above: Result Comment: Sugg estive of Crohn's disease. Subsequent testing with the Crohn's Disease Prognostic Profile (456505) that includes antiglycan antibodies AMCA, ALCA, ACCA, and Kathleen may aid in the differentiation of clinical forms of CD and prognosis of disease progression. Performed at: [facility] [address] [id number] Blending Operator: Darling Dubon MD, Phone: [phone] PERFORMED BY: [place] [address] PATHOLOGIST CVOR NURSE STEPHENIE THORPE M.D. Performed By: #### C OVID-19 JUNE, SOFIANEG, UHCG, ADDONUAPLUS #### [address] Saccharomyces cerevisiae, IgG 58.4 High 0.0-24.9 [facility] Comment on above: Result Comment: Nega tive <20.0 Equivocal 20.1 - 24.9 Positive >or= 25.0 Performed By: #### C OVID-19 JUNE, SOFIANEG, UHCG, ADDONUAPLUS #### [facility] [address] [place] [address] C-Reactive Proteinon 11-17-2 021 C-Reactive Protein 0.6 mg/dL Normal 0.0-1.0 [facility] Comment on above: Result Comment: PERF ORMED BY: [place] [address] PATHOLOGIST CVOR NURSE STEPHENIE THORPE M.D. Performed By: #### C OVID-19 JUNE, SOFIANEG, UHCG, ADDONUAPLUS #### [facility] [address] [place] [address] Erythrocyte Sedimentation Ra ramez 02-18-2021 ESR (Bld) [Velocity] 2 mm/h Normal 0-19 [facility] Comment on above: Result Comment: PERF ORMED BY: [place] [address] PATHOLOGIST CVOR NURSE STEPHENIE THORPE M.D. Performed By: #### C OVID-19 JUNE SOFIANEG, UHCG, ADDONUAPLUS #### [facility] [address] [place] [address] HCG,Urineon 02-18-2021 Beta HCG ( test) Ql (U) Negative Normal [facility] Comment on above: Result Comment: PERF ORMED BY: [place] [address] PATHOLOGIST CVOR NURSE STEPHENIE THORPE M.D. Performed By: #### C OVID-19 JUNE, SOFIANEG, UHCG, ADDONUAPLUS #### [facility] [address] [place] [address] 02-18-2021 L - -------- Specimen: [id number] Received: 02/19/21 Status: SONIA Jessica Num: [id number] Spec Type: Surgical Subm Dr: Charan Romo MD Tissues: A Colon Biopsy (ILEITIS BX) Procedures: HE Stain/2, Gross/Micro L4 -------- Patient Age/Sex Location Account Attending Physician -------- Deanna Isaac 20/F [id number] Charan Romo MD -------- SPEC NUM: [id number] RECD: 02/19/21 STATUS: SONIA LOPEZ NUM: [id number] SIDRA: 02/18/21 DR: Charan Romo MD ENTERED: 02/19/[address]: ARMAND TYPE: Surgical DEPT: S ORDERED: [...] microscopic findings support the above pathologic diagnosis. [id number] -------- -------- Specimen: [id number] Received: 02/19/21 Status: SONIA Lopez Num: [id number] Spec Type: Surgical Subm Dr: Charan Romo MD Tissues: A Colon Biopsy (ILEITIS BX) Procedures: HE Stain/2, Gross/Micro L4 -------- Patient: Deanna Isaac [id number] (Continued) -------- Signed (signature on file) Stephenie Thorpe MD 02/20/21 1038 [facility] COVID-19 Antigenon 1 COVID-19 Antigen Healthcare [...] its performance June Disclaimer characteristic determined by [employer] and June Disclaimer validated at [facility]. This June Disclaimer test has not been [...] Emergency Use Authorization for Coronavirus June Disclaimer iseas during the Public Health Emergency) June Disclaimer [...] is terminated or revoked sooner. PERFORMED BY: [place] [address] PATHOLOGIST CVOR NURSE STEPHENIE THORPE M.D. Normal [facility] Comment on above: Performed By: #### C OVID-19 JUNE, SOFIANEG, UHCG, ADDONUAPLUS #### [address] June Ag Negativeon 02-17-20 June Ag Negative Negative Normal Negative [facility] Comment on above: Result Comment: This is a duplicate June SARS Antigen (SATYA) result to be used for statistical tracking purpose only. PERFORMED BY: [place] [address] PATHOLOGIST CVOR NURSE STEPHENIE THORPE M.D. Performed By: #### C OVID-19 JUNE, SOFIANEG, UHCG, ADDONUAPLUS #### [address] Basic Metabolic Panelon 11-0 Calcium [Mass/Vol] 9.5 mg/dL Normal 8.2-10.2 [facility] Comment on above: Performed By: #### L IPASE, MG, HEPATIC, CBC, TSH3, BMP #### [address] Chloride [Moles/Vol] 102 mmol/L Normal 95-114 [facility] Comment on above: Performed By: #### L IPASE, MG, HEPATIC, CBC, TSH3, BMP #### [facility] [address] [place] [address] CO2 [Moles/Vol] 22.6 mmol/L Normal 22.0-30.0 [facility] Comment on above: Performed By: #### L IPASE, MG, HEPATIC, CBC, TSH3, BMP #### [address] Creatinine [Mass/Vol] 0.77 mg/dL Normal 0.44-1.03 [facility] Comment on above: Performed By: #### L IPASE, MG, HEPATIC, CBC, TSH3, BMP #### [address] Creatinine Clr Calc Pharmacy 102.32 [facility] Comment on above: Performed By: #### L IPASE, MG, HEPATIC, CBC, TSH3, BMP #### [address] Estimated GFR ( Natasha > 60 [facility] Comment on above: Result Comment: GFR estimated reference range: According to KDOQI guidelines, <60 ml/min/1.73m2 is sufficient to diagnose a patient with chronic kidney disease. Performed By: #### L IPASE, MG, HEPATIC, CBC, TSH3, BMP #### [address] Estimated GFR (Non- Am > 60 [facility] Comment on above: Performed By: #### L IPASE, MG, HEPATIC, CBC, TSH3, BMP #### [address] Glucose [Mass/Vol] 93 mg/dL Normal 70-100 [facility] Comment on above: Result Comment: [place] om Glucose Reference Range is dependent on time and content of last meal. Glucose of more than 200 mg/dL in a nonstressed, ambulatory subject supports the diagnosis of Diabetes Mellitus. ADA recommended reference range Performed By: #### L IPASE, MG, HEPATIC, CBC, TSH3, BMP #### [facility] [address] Potassium [Moles/Vol] 3.8 mmol/L Normal 3.5-5.1 [facility] Comment on above: Performed By: #### L IPASE, MG, HEPATIC, CBC, TSH3, BMP #### [facility] [address] [id number] [facility] Sodium [Moles/Vol] 135 mmol/L Low 136-146 [facility] Comment on above: Performed By: #### L IPASE, MG, HEPATIC, CBC, TSH3, BMP #### [facility] [address] Urea nitrogen [Mass/Vol] 11 mg/dL Normal 9-23 [facility] Comment on above: Performed By: #### L IPASE, MG, HEPATIC, CBC, TSH3, BMP #### [facility] [address] COVID-19 Antigenon 1 COVID-19 Antigen Healthcare [...] its performance June Disclaimer characteristic determined by [employer] and June Disclaimer validated at [facility]. This June Disclaimer test has not been [...] Emergency Use Authorization for Coronavirus June Disclaimer iseas during the Public Health Emergency) June Disclaimer [...] is terminated or revoked sooner. PERFORMED BY: [facility] [place] [address] PATHOLOGIST CVOR NURSE STEPHENIE THORPE M.D. [facility] Comment on above: Performed By: #### C OVID-19 JUNE, SOFIANEG, UHCG, ADDONUAPLUS #### [address] Complete Blood Count Auto Di ffon 02-04-2021 Basophils (Bld) [#/Vol] 0.0 10*3/uL Normal 0.0-0.1 [facility] Comment on above: Result Comment: PERF ORMED BY: [place] [address] PATHOLOGIST CVOR NURSE STEPHENIE THORPE M.D. Performed By: #### L IPASE, MG, HEPATIC, CBC, TSH3, BMP #### [address] Basophils/100 WBC (Bld) 0.4 % Normal . [facility] Comment on above: Performed By: #### L IPASE, MG, HEPATIC, CBC, TSH3, BMP #### [address] Eosinophils (Bld) [#/Vol] 0.1 10*3/uL Normal 0.0-0.7 [facility] Comment on above: Performed By: #### L IPASE, MG, HEPATIC, CBC, TSH3, BMP #### [address] Eosinophils/100 WBC (Bld) 1.0 % Normal . [facility] Comment on above: Performed By: #### L IPASE, MG, HEPATIC, CBC, TSH3, BMP #### [address] Erythrocyte distribution width (RBC) [Ratio] 13.3 % Normal 11.9-15.3 [facility] Comment on above: Performed By: #### L IPASE, MG, HEPATIC, CBC, TSH3, BMP #### [address] Hematocrit (Bld) [Volume fraction] 39.9 % Normal 36.0-46.0 [facility] Comment on above: Performed By: #### L IPASE, MG, HEPATIC, CBC, TSH3, BMP #### [address] Hemoglobin (Bld) [Mass/Vol] 13.6 g/dL Normal 12.0-16.0 [facility] Comment on above: Performed By: #### L IPASE, MG, HEPATIC, CBC, TSH3, BMP #### [address] Lymphocytes (Bld) [#/Vol] 1.2 10*3/uL Normal 1.20-4.8 [facility] Comment on above: Performed By: #### L IPASE, MG, HEPATIC, CBC, TSH3, BMP #### [address] Lymphocytes/100 WBC (Bld) 20.5 % Normal . [facility] Comment on above: Performed By: #### L IPASE, MG, HEPATIC, CBC, TSH3, BMP #### [address] MCH (RBC) [Entitic mass] 30.8 pg Normal 25.0-35.0 [facility] Comment on above: Performed By: #### L IPASE, MG, HEPATIC, CBC, TSH3, BMP #### [address] MCV (RBC) [Entitic vol] 90.8 fL Normal 78-102 [facility] Comment on above: Performed By: #### L IPASE, MG, HEPATIC, CBC, TSH3, BMP #### [address] Mean Corpuscular HGB Conc 34.0 g/dL Normal 31.0-37.0 [facility] Comment on above: Performed By: #### L IPASE, MG, HEPATIC, CBC, TSH3, BMP #### [address] Monocytes (Bld) [#/Vol] 0.3 10*3/uL Normal 0.1-1.00 [facility] Comment on above: Performed By: #### L IPASE, MG, HEPATIC, CBC, TSH3, BMP #### [facility] [address] [place] [address] [place] Monocytes/100 WBC (Bld) 5.3 % Normal . [facility] Comment on above: Performed By: #### L IPASE, MG, HEPATIC, CBC, TSH3, BMP #### [facility] [address] [place] [address] [place] Neutrophils (Bld) [#/Vol] 4.3 10*3/uL Normal 1.2-7.7 [facility] Comment on above: Performed By: #### L IPASE, MG, HEPATIC, CBC, TSH3, BMP #### [facility] [address] Neutrophils/100 WBC (Bld) 72.8 % Normal . [facility] Comment on above: Performed By: #### L IPASE, MG, HEPATIC, CBC, TSH3, BMP #### [facility] [address] Nucleated RBC/100 WBC (Bld) [Ratio] 0.1 % Normal 0-0.5 [facility] Comment on above: Performed By: #### L IPASE, MG, HEPATIC, CBC, TSH3, BMP #### [facility] [address] Platelet mean volume (Bld) [Entitic vol] 6.8 fL Normal 6.3-10.7 [facility] Comment on above: Performed By: #### L IPASE, MG, HEPATIC, CBC, TSH3, BMP #### [facility] [address] [place] [address] [place] Platelets (Bld) [#/Vol] 332 10*3/uL Normal 150-450 [facility] Comment on above: Performed By: #### L IPASE, MG, HEPATIC, CBC, TSH3, BMP #### [facility] [address] [place] [address] [place] RBC (Bld) [#/Vol] 4.39 10*6/uL Normal 4.10-5.10 [facility] Comment on above: Performed By: #### L IPASE, MG, HEPATIC, CBC, TSH3, BMP #### [facility] [address] WBC (Bld) [#/Vol] 5.9 10*3/uL Normal 4.5-13.5 [facility] Comment on above: Performed By: #### L IPASE, MG, HEPATIC, CBC, TSH3, BMP #### [facility] [address] Dipstick and Microscopicon 1 04-06-2020 Appearance (U) Clear Normal Clear [facility] Comment on above: Order Comment: Name Collection Type:: Clean-Voided Midstream Performed By: #### C OVID-19 JUNE, SOFIANEG, UHCG, ADDONUAPLUS #### [facility] [address] [place] [address] Bacteria,Urine None Seen Normal None Seen [facility] Comment on above: Order Comment: Name Collection Type:: Clean-Voided Midstream Performed By: #### C OVID-19 JUNE, SOFIANEG, UHCG, ADDONUAPLUS #### [facility] [address] [place] [address] Bilirubin,Urine Negative Normal Negative [facility] Comment on above: Order Comment: Name Collection Type:: Clean-Voided Midstream Performed By: #### C OVID-19 JUNE, SOFIANEG, UHCG, ADDONUAPLUS #### [facility] [address] [place] [address] Color (U) Yellow Normal Yellow [facility] Comment on above: Order Comment: Name Collection Type:: Clean-Voided Midstream Performed By: #### C OVID-19 JUNE, SOFIANEG, UHCG, ADDONUAPLUS #### [facility] [address] [place] [address] Glucose Ql (U) Normal Normal Normal [facility] Comment on above: Order Comment: Name Collection Type:: Clean-Voided Midstream Performed By: #### C OVID-19 JUNE, SOFIANEG, UHCG, ADDONUAPLUS #### [facility] [address] Hyaline Casts,Urine 0-8 Normal 0-8 [facility] Comment on above: Order Comment: Name Collection Type:: Clean-Voided Midstream Performed By: #### C OVID-19 JUNE, SOFIANEG, UHCG, ADDONUAPLUS #### [facility] [address] [place] [address] Ketones Ql (U) 3+ High Negative [facility] Comment on above: Order Comment: Name Collection Type:: Clean-Voided Midstream Performed By: #### C OVID-19 JUNE, SOFIANEG, UHCG, ADDONUAPLUS #### [address] Leukocyte esterase Test strip Ql (U) Negative Normal Negative [facility] Comment on above: Order Comment: Name Collection Type:: Clean-Voided Midstream Performed By: #### C OVID-19 JUNE, SOFIANEG, UHCG, ADDONUAPLUS #### [facility] [address] [place] [address] Nitrite,Urine Negative Normal Negative [facility] Comment on above: Order Comment: Name Collection Type:: Clean-Voided Midstream Performed By: #### C OVID-19 JUNE, SOFIANEG, UHCG, ADDONUAPLUS #### [facility] [address] [place] [address] Occult Blood,Urine 2+ High Negative [facility] Comment on above: Order Comment: Name Collection Type:: Clean-Voided Midstream Performed By: #### C OVID-19 JUNE, SOFIANEG, UHCG, ADDONUAPLUS #### [facility] [address] [place] [address] [place] pH (U) 5.5 [pH] Normal 5.0-9.0 [facility] Comment on above: Order Comment: Name Collection Type:: Clean-Voided Midstream Performed By: #### C OVID-19 JUNE, SOFIANEG, UHCG, ADDONUAPLUS #### [facility] [address] [place] [address] Protein,Urine Negative Normal Negative [facility] Comment on above: Order Comment: Name Collection Type:: Clean-Voided Midstream Performed By: #### C OVID-19 JUNE, SOFIANEG, UHCG, ADDONUAPLUS #### [address] RBC,Urine 10-19 High 0-4 [facility] Comment on above: Order Comment: Name Collection Type:: Clean-Voided Midstream Performed By: #### C OVID-19 JUNE, SOFIANEG, UHCG, ADDONUAPLUS #### [address] Specificy [place],Urine 1.023 Normal 1.001-1.030 [facility] Comment on above: Order Comment: Name Collection Type:: Clean-Voided Midstream Performed By: #### C OVID-19 JUNE, SOFIANEG, UHCG, ADDONUAPLUS #### [address] Squamous Epithelial Cell,Urine 5-9 High 0-2 [facility] Comment on above: Order Comment: Name Collection Type:: Clean-Voided Midstream Performed By: #### C OVID-19 JUNE, SOFIANEG, UHCG, ADDONUAPLUS #### [address] Urobilinogen,Urine Normal Normal Normal [facility] Comment on above: Order Comment: Name Collection Type:: Clean-Voided Midstream Performed By: #### C OVID-19 JUNE, SOFIANEG, UHCG, ADDONUAPLUS #### [place] [address] [place] WBC,Urine 3-4 Normal 0-4 [facility] Comment on above: Order Comment: Name Collection Type:: Clean-Voided Midstream Performed By: #### C OVID-19 JUNE, SOFIANEG, UHCG, ADDONUAPLUS #### [address] ECG 12 lead ECGon 02-04-2021 ECG 12 lead ECG [facility] [place] [address] [place] [address] Electrocardiograph Report Signed Patient: Deanna Isaac MR#: [id number] 146 : 2000 Acct:[id number] Age/Sex: 20 / F ADM Date: 02/04/21 Loc: ER Room: Type: [facility] ER Attending Dr: Ordering Provider: [...] sinus rhythm Confirmed by Micheal HERNANDEZ DO ([id number]) on 02/04/2021 1:25:48 PM Referred By: Electronically Signed By:Micheal HERNANDEZ DO Transcribed By: MUS Signed By Micheal Hernandez DO 1 04/06/20 1325 [facility] HCG,Urineon 02-04-2021 Beta HCG ( test) Ql (U) Negative [facility] Comment on above: Order Comment: Name Collection Type:: Clean-Voided Midstream Result Comment: PERF ORMED BY: [place] [address] PATHOLOGIST CVOR NURSE STEPHENIE THORPE M.D. Performed By: #### C OVID-19 JUNE, SOFIANEG, UHCG, ADDONUAPLUS #### [facility] [address] [id number] [facility] Hepatic Panelon 02-04-2021 Albumin [Mass/Vol] 4.1 g/dL Normal 3.2-5.5 [facility] Comment on above: Performed By: #### L IPASE, MG, HEPATIC, CBC, TSH3, BMP #### [facility] [address] [place], [place] [id number] [facility] Albumin/Globulin [Mass ratio] 1.3 {ratio} Normal [facility] Comment on above: Performed By: #### L IPASE, MG, HEPATIC, CBC, TSH3, BMP #### [facility] [address] [place] [address] ALP [Catalytic activity/Vol] 55 U/L Normal 32-92 [facility] Comment on above: Performed By: #### L IPASE, MG, HEPATIC, CBC, TSH3, BMP #### [address] ALT [Catalytic activity/Vol] 23 U/L Normal 10-60 [facility] Comment on above: Performed By: #### L IPASE, MG, HEPATIC, CBC, TSH3, BMP #### [address] AST [Catalytic activity/Vol] 23 U/L Normal 10-42 [facility] Comment on above: Performed By: #### L IPASE, MG, HEPATIC, CBC, TSH3, BMP #### [address] Bilirubin [Mass/Vol] 1.2 mg/dL Normal 0.3-1.2 [facility] Comment on above: Performed By: #### L IPASE, MG, HEPATIC, CBC, TSH3, BMP #### [address] Bilirubin,Indirect 1.1 mg/dL Normal [facility] Comment on above: Performed By: #### L IPASE, MG, HEPATIC, CBC, TSH3, BMP #### [address] Bilirubin.indirect [Mass/Vol] 0.1 mg/dL Normal 0.0-0.4 [facility] Comment on above: Performed By: #### L IPASE, MG, HEPATIC, CBC, TSH3, BMP #### [address] Globulin (S) [Mass/Vol] 3.2 g/dL Normal [facility] Comment on above: Performed By: #### L IPASE, MG, HEPATIC, CBC, TSH3, BMP #### [facility] [address] Protein [Mass/Vol] 7.3 g/dL Normal 6.1-7.9 [facility] Comment on above: Performed By: #### L IPASE, MG, HEPATIC, CBC, TSH3, BMP #### [address] Lipaseon 02-04-2021 Lipase [Catalytic activity/Vol] 24.0 U/L Normal 22-51 [facility] Comment on above: Performed By: #### L IPASE, MG, HEPATIC, CBC, TSH3, BMP #### [address] Magnesiumon 02-04-2021 Magnesium [Mass/Vol] 2.1 mg/dL Normal 1.6-2.6 [facility] Comment on above: Performed By: #### L IPASE, MG, HEPATIC, CBC, TSH3, BMP #### [address] June Ag Negativeon 02-05-20 21 June Ag Negative Negative Normal Negative [facility] Comment on above: Result Comment: This is a duplicate June SARS Antigen (ASTYA) result to be used for statistical tracking purpose only. PERFORMED BY: [place] [address] PATHOLOGIST CVOR NURSE STEPHENIE THORPE M.D. Performed By: #### C OVID-19 JUNE, SOFIANEG, UHCG, ADDONUAPLUS #### [address] Thyroid Stimulating Hormoneo n 02-04-2021 TSH Qn 1.87 m[IU]/L Normal 0.45-5.33 [facility] Comment on above: Result Comment: PERF ORMED BY: [place] [address] PATHOLOGIST CVOR NURSE STEPHENIE THORPE M.D. Performed By: #### L IPASE, MG, HEPATIC, CBC, TSH3, BMP #### [facility] [address] [place] [id number] [facility] Flu A/B Ag Detectionon 06-20 Flu A/B Ag Detection Specimen Description .NASOPHARYNGEAL SWAB Special Requests NOT REPORTED Direct Exam POSITIVE for Influenza A Antigen NEGATIVE for Influenza B Antigen Report Status FINAL 06/20/2018 [facility] Comment on above: Performed By: #### F LUAD #### [facility] [address] [place] [address] Blending Operator: Avery Hanson MD PROCEDUREon 05-16-2017 [facility] Encounters Encounter Date Encounter Type Care Provider Facility Start: 05-03-2023 End: 05-03-2023 ambulatory RAMONE NATALIYA Not Available Start: 2023 End: 2023 ambulatory RAMONE NATALIYA Not Available Start: 04-19-2023 End: 04-19-2023 ambulatory RAMONE NATALIYA Not Available Start: 04-12-2023 End: 04-12-2023 ambulatory RAMONE NATALIYA Not Available Start: 04-06-2023 End: 04-06-2023 ambulatory JOVANY CHALO Not Available Start: 03-23-2023 End: 03-23-2023 ambulatory JOVANY CHALO Not Available Start: 03-08-2023 End: 03-08-2023 ambulatory RAMONE NATALIYA Not Available Start: 02-22-2023 End: 02-22-2023 ambulatory JOVANY CHALO Not Available Start: 11-12-2021 End: 11-12-[address] LENNY SEVILLA Facility:[facility] Start: 09-16-2021 End: 09-16-[address] LENNY SEVILLA Facility:[facility] Start: 04-29-2021 End: 04-29-[address] LENNY SEVILLA Facility:[facility] Start: 06-20-2018 End: 06-20-2018 Emergency department patient visit SHARATH CARDOZO [facility] Start: 05-16-2017 Ambulatory [facility] Start: 05-16-2017 Ambulatory [facility] Procedures Date Procedure Procedure Detail Performing Clinician Start: 06-20-2018 Anthony CARDOZO Payers Date Payer Category Payer Medicaid [id number] 2022 Unknown [id number] 2018 Unknown [id number] 2002 Unknown [id number] 2.16.84 [id number] 2002 Unknown [id number] 2.16.84 [id number] 2002 Unknown [id number] 2.16.84 [id number] 2002 Unknown [id number] 2.16.84 [id number] 2002 Unknown [id number] 2.16.84 [id number] 2002 Unknown [id number] 2.16.84 [id number] 2002 Unknown [id number] 2.16.840 .[id number] 2002 Unknown [id number] 2.16.840 .[id number] 2002 Unknown [id number] 2.16.840 .[id number] 2002 Unknown [id number] 2.16.840 .[id number] 1976 Unknown [id number] 2.16.84 [id number] 1976 Unknown [id number] 2.16.84 [id number] 1959 Unknown [id number] Summary Purpose Family History No Family History [...] DATE CREATED AUTHOR AUTHOR'S ORGANIZ ATION 06/11/2021 [facility] DATE CREATED AUTHOR AUTHOR'S ORGANIZ ATION 11/17/2021 [facility] DATE CREATED AUTHOR AUTHOR'S ORGANIZ ATION 05/04/2023 [facility] FOR RECORDS PERTAINING TO PATIENTS WHO ARE [...] BE BASED ON THE PRIMARY CLINICAL RECORDS. [facility] [employer] provides no warranty or guarantee of the accuracy or completeness of information in this document.
[2023-05-11] MEDS: 0.9 % SODIUM CHLORIDE 1,000 ML 125 ML IV (06:29)
[2023-05-11] MEDS: OXYTOCIN/0.9 % SODIUM CHLORIDE 10 UNITS/500 ML PLAST..BAG 6 UNIT IV (06:30)
[2023-05-11] MEDS: CEFAZOLIN SODIUM/DEXTROSE,ISO 1 GM/50 ML IV.SOLN IV (06:31)
[2023-05-11 06:42] LABS: Hematocrit 33.6 % (36.0-48.0); Hemoglobin 10.7 g/dL (12.0-16.0); Mean Corpuscular HGB Conc 31.8 g/dL (29.9-35.2); Mean Corpuscular Volume 91.1 fL (81.0-99.0); Mean Platelet Volume 9.8 fL (9.5-13.5); Platelet Count 287 10^3/uL (150-450); Red Blood Count 3.69 10^6/uL (4.20-5.40); Red Cell Distribution Width 14.1 % (11.0-15.0); White Blood Count 11.7 10^3/uL (4.0-11.0)
[2023-05-11 06:46] LABS: Amphetamine Screen Urine NEGATIVE (NEGATIVE); Barbiturates Screen Urine NEGATIVE (NEGATIVE); Benzodiazepines Screen Urine NEGATIVE (NEGATIVE); Buprenorphine Screen Urine NEGATIVE (NEGATIVE); Cannabinoid Screen Urine NEGATIVE (NEGATIVE); Cocaine Screen Urine NEGATIVE (NEGATIVE); Methadone Screen Urine NEGATIVE (NEGATIVE); Methamphetamines Screen Urine NEGATIVE (NEGATIVE); Opiate Screen Urine NEGATIVE (NEGATIVE); Oxycodone Screen Urine NEGATIVE (NEGATIVE); Phencyclidine Screen Urine NEGATIVE (NEGATIVE); Tricyclic Antidepressant Urine NEGATIVE (NEGATIVE)
[2023-05-11] MEDS: OXYTOCIN/0.9 % SODIUM CHLORIDE 20 UNITS/1,000 ML PLAST..BAG 125 UNIT IV (11:30)
--- NOTE | 2023-05-11 11:43 | PM.OBPRCVD ---
Procedure Intrapartal events: None Induction method: per pitocin protocol Delivery augmentation: rupture of membranes and pitocin Delivery monitor: external FHT and external uterine Route of delivery: Episiotomy Description: none Laceration description: perineal - 2nd degree Delivery repair: Vicryl Estimated blood loss (mL): 200 Anesthesia type: None Disposition: floor Delivery date: 05/11/23 Gender: female presentation: vertex
[2023-05-11] MEDS: IBUPROFEN 600 MG TABLET PO ×2 (12:19→21:06)
[2023-05-11] MEDS: GLYCERIN/WITCH HAZEL PADS 1 PAD TOPICAL (12:19)
[2023-05-11] MEDS: BENZOCAINE/MENTHOL 85 GRAM SPRAY BOTTLE 1 APPLIC TOPICAL (12:20)
[2023-05-11] MEDS: ACETAMINOPHEN 325 MG TABLET 650 MG PO (15:42)
--- NOTE | 2023-05-11 17:00 | PC.NURSE ---
patient requests RN to room, assessment of perineum shows moderately swollen right side of labia, slightly firm and extremely tender to touch. patient states pain has gotten increasingly worse in this area, visibly wincing with palpation of area. reassurance given, patient has donut pillow, dermoplast and witch aakash applied, physician notifed.
[2023-05-11] MEDS: HYDROCODONE/ACET 5-325 MG TABLET 1 TAB PO ×2 (18:23→23:57)
[2023-05-12] VITALS (8 sets, daily range): BP systolic 91–119; BP diastolic 55–81; PULSE 73–100; RESP 16–20; TEMP 36.3–37.1
[2023-05-12] MEDS: IBUPROFEN 600 MG TABLET PO ×3 (03:03→19:33)
[2023-05-12] MEDS: HYDROCODONE/ACET 5-325 MG TABLET 1 TAB PO (05:45)
[2023-05-12 06:11] LABS: Basophils Percent Auto 0.3 % (0.2-2.0); Eosinophils Absolute Auto 0.1 10^3/uL (0.0-0.7); Eosinophils Percent Auto 0.3 % (0.9-7.0); Hematocrit 33.4 % (36.0-48.0); Hemoglobin 10.4 g/dL (12.0-16.0); Immature Granulocytes Abs Auto 0.11 10^3/uL (0.00-0.03); Immature Granulocytes Pct Auto 0.7 % (0.0-0.5); Lymphocytes Percent Auto 12.7 % (20.5-60.0); Mean Corpuscular HGB Conc 31.1 g/dL (29.9-35.2); Mean Corpuscular Hemoglobin 28.8 pg (26.7-34.0); Mean Corpuscular Volume 92.5 fL (81.0-99.0); Mean Platelet Volume 9.6 fL (9.5-13.5); Monocytes Percent Auto 6.3 % (1.7-12.0); Neutrophils Absolute Auto 12.4 10^3/uL (1.4-6.5); Neutrophils Percent Auto 79.7 % (43.0-75.0); Platelet Count 258 10^3/uL (150-450); Red Blood Count 3.61 10^6/uL (4.20-5.40); Red Cell Distribution Width 14.3 % (11.0-15.0); White Blood Count 15.6 10^3/uL (4.0-11.0)
--- NOTE | 2023-05-12 07:29 | PM.OBPN ---
OB - PN: Subj Subjective Patient comments: no complaints and pain well controlled Exam Constitutional Vital Signs, click to edit/add: Last Vital Signs Temp 97.6 F 05/12/23 05:48 Pulse 73 05/12/23 05:48 Resp 20 05/12/23 03:00 BP 99/56 05/12/23 05:48 O2 Del Method Room Air 05/12/23 03:35 Documenting provider has reviewed patient's vital signs: yes Common normals: no apparent distress General appearance: cooperative, comfortable, well kempt and well developed HENMT Common normals: normocephalic General ear: hearing grossly impaired Eye Common normals: EOMs intact bilaterally General eye: normal appearance of both eyes Neck & C-Spine Common normals: full ROM Lymph Lymphatic: no lymphadenopathy noted Chest Common normals: inspection of chest normal Respiratory Common normals: normal respiratory effort Auscultation: clear to auscultation bilaterally Cardio Common normals: regular rate and regular rhythm Rate: regular rate Rhythm: regular rhythm GI Common normals: Normal to inspection, nondistended, normoactive bowel sounds present Inspection: normal to inspection Auscultation: normoactive bowel sounds Palpation: soft Common normals: no CVA tenderness Back & Pelvis Common normals: no CVA tenderness Extremity Common normals: normal to inspection Neuro Hilda Coma Scale: document GCS findings Common normals: oriented x3 Psych Common normals: mental status grossly normal Attitude: calm Results Labs Labs: Short CBC 05/12/23 Range/Units 05:59 WBC 15.6 H (4.0-11.0) 10^3/uL Hgb 10.4 L (12.0-16.0) g/dL Hct 33.4 L (36.0-48.0) % Plt Count 258 (150-450) 10^3/uL OB - PN: A/P Assessment and Plan (1) Term : Time Spent with Patient Time: Total time spent is greater than 50% in coordination of care (as documented) at patient's floor/unit and/or counseling patient: Total time spent with greater than 50% in coordination of care (as documented) at patient's floor/unit and/or counseling patient: less than 15 minutes
[2023-05-12] MEDS: ACETAMINOPHEN 325 MG TABLET 650 MG PO ×3 (08:20→21:43)
[2023-05-12] MEDS: DOCUSATE SODIUM 100 MG CAPSULE PO ×2 (08:21→21:43)
--- NOTE | 2023-05-12 08:57 | PC.NURSE ---
Patient up on own to bathroom to perform pericare. Pt calls in RN to check labia. Left labia edematous and semi-soft to touch and patient states, It looks and feels a little better than yesterday. RN to continue to monitor. Ice pack remains present to michi area. RN encourages patient to report any changes to labia and any new symptoms of pain. Patient agrees to do so.
--- NOTE | 2023-05-12 11:26 | PC.NURSE ---
Patient up to bathroom to to shower for first time since and verbalizes feeling steady and ok to shower on own. RN encourages patient to call out for help if needed and patient agrees to do so. Patient significant other at bedside.
--- NOTE | 2023-05-12 12:44 | PC.NURSE ---
Patient in room up and ambulating around room for activity. Patient denies any pain at this time and appears to be comfortable. RN encourages patient to call RN for any needs. Patient agrees to do so.
--- NOTE | 2023-05-12 17:40 | PC.NURSE ---
visitors present visiting patient and leaving bedside
[2023-05-13 00:11] VITALS: BP 94/53; PULSE 85
[2023-05-13 00:12] VITALS: BP 104/58; PULSE 86
[2023-05-13 00:13] VITALS: RESP 16; TEMP 36.8
[2023-05-13] MEDS: IBUPROFEN 600 MG TABLET PO ×2 (04:02→09:26)
[2023-05-13] MEDS: ACETAMINOPHEN 325 MG TABLET 650 MG PO (05:58)
--- NOTE | 2023-05-13 07:35 | W.PC.ACHO ---
Registration Status: ADM IN Primary Language: Latvian Preferred Language: Latvian Active Medications Generic Name Dose Route Start Last Admin Trade Name Freq PRN Reason Stop Dose Admin Acetaminophen 650 mg 05/11/23 11:45 05/13/23 05:58 Acetaminophen 325 Mg Tablet PO 650 mg Q6H PRN Administration Mild Pain Hydrocodone Bitart/Acetaminophen 1 tab 05/11/23 18:12 05/12/23 05:45 Hydrocodone/Acet 5-325 Mg Tablet PO 1 tab Q4H PRN Administration Pain Scale 7-10 Al Hydroxide/Mg Hydroxide 2,400 mg 05/11/23 11:45 Magnesium Hydroxide 2,400 Mg/10 Ml Oral.Susp PO Q6H PRN Dyspepsia Benzocaine/Menthol 1 applic 05/11/23 11:45 05/11/23 12:20 Benzocaine/Menthol 85 Gram Brinson Bottle TOPICAL 1 applic Q2H PRN Administration Pain Diphtheria/Pertussis/Tetanus Vacc 0.5 ml 05/13/23 09:00 Adacel Diph,Pertuss(Acell),Tet Vac/Pf 0.5 Ml Adult Syringe IM 05/13/23 09:01 .ONCE ONE Docusate Sodium 100 mg 05/12/23 09:00 05/12/23 21:43 Docusate Sodium 100 Mg Capsule PO 100 mg BID LELA Administration Sodium Chloride 1,000 mls @ 125 mls/hr 05/11/23 05:30 05/11/23 14:37 Sodium Chloride 0.9% 1,000 Ml IV Not Given .Q8H LELA Ibuprofen 600 mg 05/11/23 11:45 05/13/23 04:02 Ibuprofen 600 Mg Tablet PO 600 mg Q6H PRN Administration Moderate Pain Measles/Mumps/Rubella Vaccine Live 0.5 ml 05/13/23 09:00 Measles,Mumps,Rubella Vacc/Pf 0.5 Ml Vial SQ 05/13/23 09:01 .ONCE ONE Ondansetron HCl 4 mg 05/11/23 05:07 Ondansetron Pf 4 Mg/2 Ml Vial IV Q6H PRN Nausea And Vomiting Ondansetron HCl 4 mg 05/11/23 05:07 Ondansetron 4 Mg Rapdis Tablet SL Q6H PRN Nausea And Vomiting Senna 17.2 mg 05/11/23 20:00 Sennosides 8.6 Mg Tablet PO QHS PRN Constipation Simethicone 80 mg 05/11/23 11:45 Simethicone 80 Mg Tab.Chew PO QID PRN Abdominal Distention Temazepam 15 mg 05/11/23 11:45 Temazepam 15 Mg Capsule PO QHS PRN Sleep Witch Keren/Glycerin 1 pad 05/11/23 11:45 05/11/23 12:19 Glycerin/Witch Keren Pads TOPICAL 1 pad Q2H PRN Administration Pain Respiratory Oxygen Delivery Method Room Air Oxygen Delivery Method Room Air Oxygen Delivery Method Room Air Oxygen Delivery Method Room Air Oxygen Delivery Method Room Air Oxygen Delivery Method Room Air Cardiology Heart Sounds Strong,Regular Renal Bladder Pattern Continent Bladder Pattern Continent
--- NOTE | 2023-05-13 07:58 | PM.OBPN ---
OB - PN: Subj Subjective Patient comments: no complaints and pain well controlled Exam Constitutional Vital Signs, click to edit/add: Last Vital Signs Temp 98.2 F 05/13/23 00:13 Pulse 86 05/13/23 00:12 Resp 16 05/13/23 00:13 BP 104/58 05/13/23 00:12 O2 Del Method Room Air 05/13/23 00:13 Documenting provider has reviewed patient's vital signs: yes Common normals: no apparent distress and oriented x3 General appearance: cooperative and well kempt Orientation/consciousness: Yes awake, Yes oriented to person, Yes oriented to place and Yes oriented to time HENMT Common normals: normocephalic Eye Common normals: EOMs intact bilaterally Neck & C-Spine Common normals: full ROM General: normal visual inspection Lymph Lymphatic: no lymphadenopathy noted Chest Common normals: inspection of chest normal Respiratory Common normals: normal respiratory effort Effort & inspection: able to speak in complete sentences Auscultation: clear to auscultation bilaterally Cardio Common normals: no JVD, regular rate and regular rhythm Rate: regular rate Rhythm: regular rhythm GI Common normals: Normal to inspection, nondistended, normoactive bowel sounds present Inspection: normal to inspection Auscultation: normoactive bowel sounds Palpation: soft Common normals: no CVA tenderness Back & Pelvis Common normals: no CVA tenderness General back: CVA tenderness Extremity Common normals: normal to inspection and full ROM General: normal exam except as noted Neuro Common normals: oriented x3 Sensorium/orientation: awake, alert, oriented to person, oriented to place and oriented to time Speech: speech normal Psych Appearance: grossly normal and well kempt Attitude: calm Activity/motor behavior: appropriate eye contact Thought process: normal thought process OB - PN: A/P Assessment and Plan (1) Term : Plan - Vaginal Delivery day: 2 Plan: discharge home Time Spent with Patient Time: Total time spent is greater than 50% in coordination of care (as documented) at patient's floor/unit and/or counseling patient: Total time spent with greater than 50% in coordination of care (as documented) at patient's floor/unit and/or counseling patient: less than 15 minutes
--- NOTE | 2023-05-13 08:30 | PC.NURSE ---
LC into speak with pt regarding drying up when not . Given handout for same and reviewed info together. Pt voiced understanding at this time. Declined offer for follow up visit, states will call if concerns arise.
[2023-05-13 09:22] VITALS: BP 110/67; PULSE 69; RESP 16; TEMP 36.5
[2023-05-13] MEDS: DOCUSATE SODIUM 100 MG CAPSULE PO (09:27)
== END 2023-05-13 14:00 | disposition home or self-care (01) | DRG 807 ==
PROVIDERS: Admitting Provider Obstetrics & Gynecology; PCP Family Medicine; Visit Provider Obstetrics & Gynecology
DX: O99.824 Streptococcus B carrier state complicating childbirth (principal); Z37.0 Single live birth; O70.1 Second degree perineal laceration during delivery; O99.334 Smoking (tobacco) complicating childbirth; F17.210 Nicotine dependence, cigarettes, uncomplicated; Z3A.39 39 weeks gestation of pregnancy
CPT/HCPCS: 36415; 59050; 59410; 80307; 85025; 85027; 86850; 86900; 86901; 96365; 96366; 96368; 96376; J0690

== ENCOUNTER 2023-06-13 10:34 | Outpatient (OUT) | payer BC, OTHER, SELFPAY ==
--- OUTSIDE RECORDS SUMMARY | 2023-06-13 10:38 | XMS_ITS | CCD ---
Author Name Unknown Address [facility] (Formerly Nearly[facility]) [facility] [address] [place] [id number] Organization [facility] Care Team Providers Care Sessions Clerk Name Role Phone BELTRAN, CATHERINE S Unavailable Unavailable BELTRAN, CATHERINE S Unavailable Unavailable BELTRAN, CATHERINE S Unavailable Unavailable BELTRAN, CATHERINE S Unavailable Unavailable SHARATH CARDOZO Attending Unavailable BRISEYDA BROCK Primary Care Unavailable KARASIK, DR GALVEZ Admitting Unavailable KARASIK, DR GALVEZ Attending Unavailable KARASIK, DR GALVEZ Consulting Unavailable KARASIK, DR GALVEZ Consulting Unavailable ANDERS, DR PACK Attending Unavailable ANDERS, DR PACK Admitting Unavailable KARASIK, DR GALVEZ Admitting Unavailable KARASIK, DR GALVEZ Attending Unavailable KARASIK, DR GALVEZ Consulting Unavailable JOVANY ISABEL Attending Unavailable ANDERS, RAMONE Attending Unavailable ANDERS, RAMONE Attending Unavailable ANDERS, RAMONE Attending Unavailable ANDERS, RAMONE Attending Unavailable ANDERS, RAMONE Attending Unavailable JOVANY ISABEL Attending Unavailable ANDERS, RAMONE Attending Unavailable JOVANY ISABEL Attending Unavailable Dwayne Mccullough MD Primary Care Provider Medications Current Medications Medication Drug Class(es) Dates Sig (Normalized) Sig (Original) ketoconazole 20 mg/ml topical cream (3 sources) Azole Antifungal Start: 11-12-2022 ketoconazole (NIZOral) 2 % cream Indications: Tinea pedis of both feet Apply topically Daily. 60 g 2 11/12/2022 Active ondansetron 4 mg disintegrating oral tablet (3 sources) Serotonin-3 Receptor Antagonist Start: 03-17-2023 End: 06-15-2023 take 1 tablet by mouth every six hours ondansetron ODT (Zofran-ODT) 4 MG disintegrating tablet Indications: Nausea/vomiting in Take 1 tablet (4 mg) by mouth every 6 (six) hours 120 tablet 0 03/17/2023 06/15/2023 Active MV-Min-Fe Fum-FA-DHA ( 1 PO) (3 sources) MV-Min- Fe Fum-FA-DHA ( 1 PO) Take 1 tablet by mouth in the morning. 0 Active Problems Active Problems Problem Classification Problem Date Documented Date Episodic/Chronic Cardiac arrest and ventricular fibrillation (3 sources) Ventricular flutter; Translations: [Ventricular flutter] Onset: 09-14-2022 09-14-2022 Chronic Immunizations and screening for infectious disease (4 [...] INF AND PARASITIC DZ] Onset: 09-16-2021 Episodic Other and delivery including normal (1 source) Third trimester ; Translations: [Encounter for supervision of normal , unspecified, third trimester] 05-04-2023 Episodic Other upper respiratory infections (3 sources) Sinusitis; Translations: [Chronic sinusitis, unspecified] Onset: 09-14-2022 09-14-2022 Chronic Unclassified (1 source) Knee Pain / [id number]() Onset: 05-16-2017 Past or Other Problems Problem Classification Problem Date Documented Da te Episodic/Chronic Other non-traumatic joint disorders (1 source) Knee pain; Translations: [Knee Pain] Onset: 05-16-2017 Episodic Other non-traumatic joint disorders (3 sources) Pain in left knee; Translations: [Pain in joint, lower leg] Onset: 05-16-2017 11-10-2022 Episodic Superficial injury; contusion (3 sources) Contusion of left knee; Translations: [Contusion of left knee, initial encounter] Onset: 05-16-2017 11-10-2022 Episodic Results Test Name Value Interpretation Reference Range Facility ALL CBC WITH AUTO DIFFon BASOPHILS ABSOLUTE AUTO 0.0 [facility] Basophils/100 WBC (Bld) 0.3 % 0.2 - 2.0 % [facility] Eosinophils/100 WBC (Bld) 0.3 % Low 0.9 - 7.0 % [facility] Erythrocyte distribution width (RBC) [Ratio] 14.3 % 11.0 - 15.0 % [facility] Hematocrit (Bld) [Volume fraction] 33.4 % Low 36.0 - 48.0 % [facility] Healthcar e Hemoglobin (Bld) [Mass/Vol] 10.4 g/dL Low 12.0 - 16.0 g/dL [facility] IMMATURE GRANULOCYTES ABS AUTO 0.11 High [facility] Immature granulocytes/100 WBC (Bld) 0.7 % High 0.0 - 0.5 % [facility] Interpretation and review of laboratory results Abnormal [facility] LYMPHOCYTES ABSOLUTE AUTO 2.0 [facility] Lymphocytes/100 WBC (Bld) 12.7 % Low 20.5 - 60.0 % [facility] MCH (RBC) [Entitic mass] 28.8 pg 26.7 - 34.0 pg [facility] MCHC (RBC) [Mass/Vol] 31.1 g/dL 29.9 - 35.2 g/dL [facility] MCV (RBC) [Entitic vol] 92.5 fL 81.0 - 99.0 fL [facility] MONOCYTES ABSOLUTE AUTO 1.0 High [facility] Monocytes/100 WBC (Bld) 6.3 % 1.7 - 12.0 % [facility] NEUTROPHILS ABSOLUTE AUTO 12.4 High [facility] Neutrophils/100 WBC (Bld) 79.7 % High 43.0 - 75.0 % [facility] Platelet mean volume (Bld) [Entitic vol] 9.6 fL 9.5 - 13.5 fL [facility] Healthc are TBH EO # 0.1 [facility] PLT 258 [facility] RBC 3.61 Low [facility] WBC 15.6 High [facility] HMHP CBC WITH PLATELET NO DI FFERENTIALon 05-11-2023 Erythrocyte distribution width (RBC) [Ratio] 14.1 % 11.0 - 15.0 % [facility] Hematocrit (Bld) [Volume fraction] 33.6 % Low 36.0 - 48.0 % [facility] e Hemoglobin (Bld) [Mass/Vol] 10.7 g/dL Low 12.0 - 16.0 g/dL [facility] Interpretation and review of laboratory results Abnormal [facility] MCH (RBC) [Entitic mass] 29.0 pg 26.7 - 34.0 pg [facility] MCHC (RBC) [Mass/Vol] 31.8 g/dL 29.9 - 35.2 g/dL [facility] MCV (RBC) [Entitic vol] 91.1 fL 81.0 - 99.0 fL [facility] Platelet mean volume (Bld) [Entitic vol] 9.8 fL 9.5 - 13.5 fL [facility] PLT 287 [facility] RBC 3.69 Low [facility] e TB WBC 11.7 High [facility]car e CL[facility] e Urinalysis macro (dipstick) panel (U)on 05-10-2023 Bilirubin, UA Negative Negative - 4(70) +++ mg/dL [facility] Blood, UA Negative Negative - 50 [place]/mcL [facility] Clarity, UA Clear [facility] re Color, UA Yellow [facility] e Glucose, UA Negative Negative - 1999(110) ++++ mg/dL [facility] Interpretation and review of laboratory results Normal [facility] Ketones, UA Negative Negative - 160(16) ++++ mg/dL [facility] Leukocytes, UA Negative Negative - 500+++ Portia/mcL [facility] Nitrite, UA Negative Negative - Positive [facility] pH, UA 5.5 5 - 9 [facility] Healthcar e Protein, UA Negative Negative - 1999(20) ++++ mg/dL [facility] Spec Grav, UA 1.015 1 - 1.03 [facility] Urobilinogen, UA 1.0 0.2 - 12 mg/dL [facility] CHLAMYDIA/GONOCOCCUS OTTO ( AB/URINE/PAPon 11-17-2021 Chlamydia trachomatis, OTTO Negative Normal Negative [facility] Comment on above: Performed By: #### C T/NGNA #### [facility] [address] [address] [address] Navneet Landeros Neisseria gonorrhoeae, OTTO Negative Normal Negative [facility] Comment on above: Performed By: #### C T/NGNA #### [facility] [address] [place] [address] Dr. Navneet Landeros VAGINITIS/VAGINOSIS DNA PROB Acosta 11-15-2021 Mei species Negative Normal Negative [facility] Comment on above: Performed By: #### V AGINT #### [facility] [address] [place] [address] Dr. Navneet Landeros Gardnerella vaginalis Positive Abnormal Negative [facility] Comment on above: Performed By: #### V AGINT #### [facility] [address] [place] [address] Dr. Navneet Landeros Trichomonas vaginalis Negative Normal Negative [facility] Comment on above: Performed By: #### V AGINT #### [facility] [address] [place] [address] Dr. Navneet Landeros CHLAMYDIA/GONOCOCCUS OTTO (SW AB/URINE/PAPon 09-19-2021 Chlamydia trachomatis, OTTO Negative Normal Negative [facility] Comment on above: Performed By: #### C T/NGNA #### [facility] [address] [place] [address] Dr. Navneet Landeros Neisseria gonorrhoeae, OTTO Negative Normal Negative [facility] Comment on above: Performed By: #### C T/NGNA #### [facility] [address] [place] [address] Dr. Navneet Landeros VAGINITIS/VAGINOSIS DNA PROB Acosta 09-18-2021 Mei species Negative Normal Negative [facility] Comment on above: Performed By: #### V AGINT #### [facility] [address] [place] [address] Dr. Navneet Landeros Gardnerella vaginalis Negative Normal Negative [facility] Comment on above: Performed By: #### V AGINT #### [facility] [address] [place] [address] Dr. Navneet Landeros Trichomonas vaginalis Negative Normal Negative [facility] Comment on above: Performed By: #### V AGINT #### [facility] [address] [address] [address] Navneet Landeros CHLAMYDIA/GONOCOCCUS OTTO (SW AB/URINE/PAPon 05-02-2021 Chlamydia trachomatis, OTTO Positive Abnormal Negative [facility] Comment on above: Result Comment: . Performed By: #### C T/NGNA #### [facility] [address] [address] [address] Navneet Landeros Neisseria gonorrhoeae, OTTO Negative Normal Negative [facility] Comment on above: Performed By: #### C T/NGNA #### [facility] [address] [address] [address] Navneet Landeros VAGINITIS/VAGINOSIS DNA PROB Acosta 05-01-2021 Mei species Negative Normal Negative [facility] Comment on above: Performed By: #### V AGINT #### [facility] [address] [address] [address] Navneet Landeros Gardnerella vaginalis Positive Abnormal Negative [facility] Comment on above: Performed By: #### V AGINT #### [facility] [address] [address] [address] Navneet Landeros Trichomonas vaginalis Negative Normal Negative [facility] Comment on above: Performed By: #### V AGINT #### [facility] [address] [address] [address] Navneet Landeros Bowel Disorders [place] Atypical pANCA Negative Normal Negative [facility] Comment on above: Performed By: #### C OVID-19 JUNE, SOFIANEG, UHCG, ADDONUAPLUS #### [facility] [address] Bowel Disorders [place] Negative Normal Negative [facility] Comment on above: Performed By: #### C OVID-19 JUNE, SOFIANEG, UHCG, ADDONUAPLUS #### [facility] [address] Note Normal . [facility] Comment on above: Result Comment: Sugg estive of Crohn's disease. Subsequent testing with the Crohn's Disease Prognostic Profile (221483) that includes antiglycan antibodies AMCA, ALCA, ACCA, and Kathleen may aid in the differentiation of clinical forms of CD and prognosis of disease progression. Performed at: [facility] Lab[address] [id number] Home Based Assistant: Darling Dubon MD, Phone: [phone] PERFORMED BY: [place] [address] PATHOLOGIST TRAFFIC OBSERVER STEPHENIE THORPE M.D. Performed By: #### C OVID-19 JUNE, SOFIANEG, UHCG, ADDONUAPLUS #### [address] Saccharomyces cerevisiae, IgG 58.4 High 0.0-24.9 [facility] Comment on above: Result Comment: Nega tive <20.0 Equivocal 20.1 - 24.9 Positive >or= 25.0 Performed By: #### C OVID-19 JUNE, SOFIANEG, UHCG, ADDONUAPLUS #### [address] C-Reactive Proteinon 021 C-Reactive Protein 0.6 mg/dL Normal 0.0-1.0 [facility] Comment on above: Result Comment: PERF ORMED BY: [place] [address] PATHOLOGIST TRAFFIC OBSERVER STEPHENIE THORPE M.D. Performed By: #### C OVID-19 JUNE, SOFIANEG, UHCG, ADDONUAPLUS #### [address] Erythrocyte Sedimentation Ra ramze 02-18-2021 ESR (Bld) [Velocity] 2 mm/h Normal 0-19 [facility] Comment on above: Result Comment: PERF ORMED BY: [place] [address] PATHOLOGIST TRAFFIC OBSERVER STEPHENIE THORPE M.D. Performed By: #### C OVID-19 JUNE, SOFIANEG, UHCG, ADDONUAPLUS #### [address] [place] [address] [facility] HCG,Urineon 02-18-2021 Beta HCG ( test) Ql (U) Negative Normal [facility] Comment on above: Result Comment: PERF ORMED BY: [address] [place] [address] PATHOLOGIST TRAFFIC OBSERVER STEPHENIE THORPE M.D. Performed By: #### C OVID-19 DENIZ [place]AT[place], [facility] [place] #### [facility] [address] [id number] [place] Benito 02-18-2021 L - -------- Specimen: [id number] Received: 02/19/21 Status: SONIA Lopez Num: [id number] Spec Type: Surgical Subm Dr: Charan Romo MD Tissues: A Colon Biopsy (ILEITIS BX) Procedures: HE Stain/2, Gross/Micro L4 -------- Patient Age/Sex Location Account Attending Physician -------- Deanna Isaac 20/[facility] [id number] Charan Romo MD -------- SPEC NUM: [id number] RECD: 02/19/21 STATUS: SONIA LOPEZ NUM: [id number] SIDRA: 02/18/21 DR: Charan Romo MD ENTERED: [...] microscopic findings support the above pathologic diagnosis. [id number] -------- -------- Specimen: [id number] Received: 02/19/21 Status: SONIA Lopez Num: [id number] Spec Type: Surgical Subm Dr: Charan Romo MD Tissues: A Colon Biopsy (ILEITIS BX) Procedures: HE Stain/2, Gross/Micro L4 -------- Patient: Deanna Isaac [id number] (Continued) -------- Signed (signature on file) Stephenie Thorpe MD 02/20/[address] [place] [address] COVID-19 Antigenon COVID-19 Antigen Healthcare Worker?: N June Reference [...] its performance June Disclaimer characteristic determined by [employer] and June Disclaimer validated at [facility]. This June Disclaimer test has [...] is terminated or revoked sooner. PERFORMED BY: [place] [address] PATHOLOGIST TRAFFIC OBSERVER STEPHENIE THORPE M.D. Normal [facility] Comment on above: Performed By: #### C OVID-19 JUNE, SOFIANEG, UHCG, ADDONUAPLUS #### [address] June Ag Negativeon 02-17-20 21 June Ag Negative Negative Normal Negative [facility] Comment on above: Result Comment: This is a duplicate June SARS Antigen (SATYA) result to be used for statistical tracking purpose only. PERFORMED BY: [place] [address] PATHOLOGIST TRAFFIC OBSERVER STEPHENIE THORPE M.D. Performed By: #### C OVID-19 JUNE, SOFIANEG, UHCG, ADDONUAPLUS #### [address] Basic Metabolic Panelon 11-0 -2020 Calcium [Mass/Vol] 9.5 mg/dL Normal 8.2-10.2 [facility] Comment on above: Performed By: #### L IPASE, MG, HEPATIC, CBC, TSH3, BMP #### [address] Chloride [Moles/Vol] 102 mmol/L Normal 95-114 [facility] Comment on above: Performed By: #### L IPASE, MG, HEPATIC, CBC, TSH3, BMP #### [address] CO2 [Moles/Vol] 22.6 mmol/L Normal 22.0-30.0 [facility] Comment on above: Performed By: #### L IPASE, MG, HEPATIC, CBC, TSH3, BMP #### [address] Creatinine [Mass/Vol] 0.77 mg/dL Normal 0.44-1.03 [facility] Comment on above: Performed By: #### L IPASE, MG, HEPATIC, CBC, TSH3, BMP #### [facility] [address] Creatinine Clr Calc Pharmacy 102.32 [facility] Comment on above: Performed By: #### L IPASE, MG, HEPATIC, CBC, TSH3, BMP #### [facility] [address] Estimated GFR ( Natasha > 60 [facility] Comment on above: Result Comment: GFR estimated reference range: According to KDOQI guidelines, <60 ml/min/1.73m2 is sufficient to diagnose a patient with chronic kidney disease. Performed By: #### L IPASE, MG, HEPATIC, CBC, TSH3, BMP #### [address] Estimated GFR (Non- Am > 60 [facility] Comment on above: Performed By: #### L IPASE, MG, HEPATIC, CBC, TSH3, BMP #### [address] Glucose [Mass/Vol] 93 mg/dL Normal 70-100 [facility] Comment on above: Result Comment: [place] om Glucose Reference Range is dependent on time and content of last meal. Glucose of more than 200 mg/dL in a nonstressed, ambulatory subject supports the diagnosis of Diabetes Mellitus. ADA recommended reference range Performed By: #### L IPASE, MG, HEPATIC, CBC, TSH3, BMP #### [facility] [address] Potassium [Moles/Vol] 3.8 mmol/L Normal 3.5-5.1 [facility] Comment on above: Performed By: #### L IPASE, MG, HEPATIC, CBC, TSH3, BMP #### [facility] [address] Sodium [Moles/Vol] 135 mmol/L Low 136-146 [facility] Comment on above: Performed By: #### L IPASE, MG, HEPATIC, CBC, TSH3, BMP #### [facility] [address] [id number] [place] Urea nitrogen [Mass/Vol] 11 mg/dL Normal 9-23 [facility] Comment on above: Performed By: #### L IPASE, MG, HEPATIC, CBC, TSH3, BMP #### [facility] [address] [id number] [facility] COVID-19 Antigenon 1 COVID-19 Antigen Healthcare Worker?: [...] its performance June Disclaimer characteristic determined by [employer] and June Disclaimer validated at [facility]. This June Disclaimer test has [...] is terminated or revoked sooner. PERFORMED BY: [place] [address] PATHOLOGIST TRAFFIC OBSERVER STEPHENIE THORPE M.D. Normal [facility] Comment on above: Performed By: #### C OVID-19 JUNE, SOFIANEG, UHCG, ADDONUAPLUS #### [facility] [address] Complete Blood Count Auto Di ffon 02-04-2021 Basophils (Bld) [#/Vol] 0.0 10*3/uL Normal 0.0-0.1 [facility] Comment on above: Result Comment: PERF ORMED BY: [place] [address] PATHOLOGIST TRAFFIC OBSERVER STEPHENIE THORPE M.D. Performed By: #### L IPASE, MG, HEPATIC, CBC, TSH3, BMP #### [address] Basophils/100 WBC (Bld) 0.4 % Normal . [facility] Comment on above: Performed By: #### L IPASE, MG, HEPATIC, CBC, TSH3, BMP #### [address] Eosinophils (Bld) [#/Vol] 0.1 10*3/uL Normal 0.0-0.7 [facility] Comment on above: Performed By: #### L IPASE, MG, HEPATIC, CBC, TSH3, BMP #### [address] Eosinophils/100 WBC (Bld) 1.0 % Normal . [facility] Comment on above: Performed By: #### L IPASE, MG, HEPATIC, CBC, TSH3, BMP #### [address] Erythrocyte distribution width (RBC) [Ratio] 13.3 % Normal 11.9-15.3 [facility] Comment on above: Performed By: #### L IPASE, MG, HEPATIC, CBC, TSH3, BMP #### [address] Hematocrit (Bld) [Volume fraction] 39.9 % Normal 36.0-46.0 [facility] Comment on above: Performed By: #### L IPASE, MG, HEPATIC, CBC, TSH3, BMP #### [address] Hemoglobin (Bld) [Mass/Vol] 13.6 g/dL Normal 12.0-16.0 [facility] Comment on above: Performed By: #### L IPASE, MG, HEPATIC, CBC, TSH3, BMP #### [place] [address] [place] Lymphocytes (Bld) [#/Vol] 1.2 10*3/uL Normal 1.20-4.8 [facility] Comment on above: Performed By: #### L IPASE, MG, HEPATIC, CBC, TSH3, BMP #### [address] Lymphocytes/100 WBC (Bld) 20.5 % Normal . [facility] Comment on above: Performed By: #### L IPASE, MG, HEPATIC, CBC, TSH3, BMP #### [address] MCH (RBC) [Entitic mass] 30.8 pg Normal 25.0-35.0 [facility] Comment on above: Performed By: #### L IPASE, MG, HEPATIC, CBC, TSH3, BMP #### [address] MCV (RBC) [Entitic vol] 90.8 fL Normal 78-102 [facility] Comment on above: Performed By: #### L IPASE, MG, HEPATIC, CBC, TSH3, BMP #### [address] Mean Corpuscular HGB Conc 34.0 g/dL Normal 31.0-37.0 [facility] Comment on above: Performed By: #### L IPASE, MG, HEPATIC, CBC, TSH3, BMP #### [address] Monocytes (Bld) [#/Vol] 0.3 10*3/uL Normal 0.1-1.00 [facility] Comment on above: Performed By: #### L IPASE, MG, HEPATIC, CBC, TSH3, BMP #### [address] Monocytes/100 WBC (Bld) 5.3 % Normal . [facility] Comment on above: Performed By: #### L IPASE, MG, HEPATIC, CBC, TSH3, BMP #### [address] Neutrophils (Bld) [#/Vol] 4.3 10*3/uL Normal 1.2-7.7 [facility] Comment on above: Performed By: #### L IPASE, MG, HEPATIC, CBC, TSH3, BMP #### [address] Neutrophils/100 WBC (Bld) 72.8 % Normal . [facility] Comment on above: Performed By: #### L IPASE, MG, HEPATIC, CBC, TSH3, BMP #### [address] Nucleated RBC/100 WBC (Bld) [Ratio] 0.1 % Normal 0-0.5 [facility] Comment on above: Performed By: #### L IPASE, MG, HEPATIC, CBC, TSH3, BMP #### [address] Platelet mean volume (Bld) [Entitic vol] 6.8 fL Normal 6.3-10.7 [facility] Comment on above: Performed By: #### L IPASE, MG, HEPATIC, CBC, TSH3, BMP #### [address] Platelets (Bld) [#/Vol] 332 10*3/uL Normal 150-450 [facility] Comment on above: Performed By: #### L IPASE, MG, HEPATIC, CBC, TSH3, BMP #### [address] RBC (Bld) [#/Vol] 4.39 10*6/uL Normal 4.10-5.10 [facility] Comment on above: Performed By: #### L IPASE, MG, HEPATIC, CBC, TSH3, BMP #### [place] [address] [place] WBC (Bld) [#/Vol] 5.9 10*3/uL Normal 4.5-13.5 [facility] Comment on above: Performed By: #### L IPASE, MG, HEPATIC, CBC, TSH3, BMP #### [place] [address] [place] Dipstick and Microscopicon 1 1-03-2021 Appearance (U) Clear Normal Clear [facility] Comment on above: Order Comment: Name Collection Type:: Clean-Voided Midstream Performed By: #### C OVID-19 JUNE, SOFIANEG, UHCG, ADDONUAPLUS #### [facility] [address] [place] [address] [place] Bacteria,Urine None Seen Normal None Seen [facility] Comment on above: Order Comment: Name Collection Type:: Clean-Voided Midstream Performed By: #### C OVID-19 JUNE, SOFIANEG, UHCG, ADDONUAPLUS #### [facility] [address] [place] [address] [place] Bilirubin,Urine Negative Normal Negative [facility] Comment on above: Order Comment: Name Collection Type:: Clean-Voided Midstream Performed By: #### C OVID-19 JUNE, SOFIANEG, UHCG, ADDONUAPLUS #### [facility] [address] [place] [address] [place] Color (U) Yellow Normal Yellow [facility] Comment on above: Order Comment: Name Collection Type:: Clean-Voided Midstream Performed By: #### C OVID-19 JUNE, SOFIANEG, UHCG, ADDONUAPLUS #### [facility] [address] [place], [place] [phone] [place] Glucose Ql (U) Normal Normal Normal [facility] Comment on above: Order Comment: Name Collection Type:: Clean-Voided Midstream Performed By: #### C OVID-19 JUNE, SOFIANEG, UHCG, ADDONUAPLUS #### [facility] [address] [place] [id number] [place] Hyaline Casts,Urine 0-8 Normal 0-8 [facility] Comment on above: Order Comment: Name Collection Type:: Clean-Voided Midstream Performed By: #### C OVID-19 JUNE, SOFIANEG, UHCG, ADDONUAPLUS #### [facility] [address] [place] [address] [place] Ketones Ql (U) 3+ High Negative [facility] Comment on above: Order Comment: Name Collection Type:: Clean-Voided Midstream Performed By: #### C OVID-19 JUNE, SOFIANEG, UHCG, ADDONUAPLUS #### [facility] [address] [place] [address] Leukocyte esterase Test strip Ql (U) Negative Normal Negative [facility] Comment on above: Order Comment: Name Collection Type:: Clean-Voided Midstream Performed By: #### C OVID-19 JUNE, SOFIANEG, UHCG, ADDONUAPLUS #### [facility] [address] [place] [address] [place] Nitrite,Urine Negative Normal Negative [facility] Comment on above: Order Comment: Name Collection Type:: Clean-Voided Midstream Performed By: #### C OVID-19 JUNE, SOFIANEG, UHCG, ADDONUAPLUS #### [address] Occult Blood,Urine 2+ High Negative [facility] Comment on above: Order Comment: Name Collection Type:: Clean-Voided Midstream Performed By: #### C OVID-19 JUNE, SOFIANEG, UHCG, ADDONUAPLUS #### [facility] [address] [place] [address] [place] pH (U) 5.5 [pH] Normal 5.0-9.0 [facility] Comment on above: Order Comment: Name Collection Type:: Clean-Voided Midstream Performed By: #### C OVID-19 JUNE, SOFIANEG, UHCG, ADDONUAPLUS #### [facility] [address] [place] [address] [place] Protein,Urine Negative Normal Negative [facility] Comment on above: Order Comment: Name Collection Type:: Clean-Voided Midstream Performed By: #### C OVID-19 JUNE, SOFIANEG, UHCG, ADDONUAPLUS #### [facility] [address] [place] [address] [place] RBC,Urine 10-19 High 0-4 [facility] Comment on above: Order Comment: Name Collection Type:: Clean-Voided Midstream Performed By: #### C OVID-19 JUNE, SOFIANEG, UHCG, ADDONUAPLUS #### [facility] [address] [place] [address] Specificy [place],Urine 1.023 Normal 1.001-1.030 [facility] Comment on above: Order Comment: Name Collection Type:: Clean-Voided Midstream Performed By: #### C OVID-19 JUNE, SOFIANEG, UHCG, ADDONUAPLUS #### [address] Squamous Epithelial Cell,Urine 5-9 High 0-2 [facility] Comment on above: Order Comment: Name Collection Type:: Clean-Voided Midstream Performed By: #### C OVID-19 JUNE, SOFIANEG, UHCG, ADDONUAPLUS #### [address] Urobilinogen,Urine Normal Normal Normal [facility] Comment on above: Order Comment: Name Collection Type:: Clean-Voided Midstream Performed By: #### C OVID-19 JUNE, SOFIANEG, UHCG, ADDONUAPLUS #### [facility] [address] [place] [address] WBC,Urine 3-4 Normal 0-4 [facility] Comment on above: Order Comment: Name Collection Type:: Clean-Voided Midstream Performed By: #### C OVID-19 JUNE, SOFIANEG, UHCG, ADDONUAPLUS #### [facility] [address] [place] [address] ECG 12 lead ECGon 02-04-2021 ECG 12 lead ECG [facility] [place] [address] Electrocardiograph Report Signed Patient: Deanna Isaac MR#: [id number] 146 : 2000 Acct:[id number] Age/Sex: 20 / F ADM Date: 02/04/21 Loc: ER Room: Type: [facility] ER Attending Dr: Ordering Provider: Micheal [...] sinus rhythm Confirmed by Micheal HERNANDEZ DO ([id number]) on 02/04/2021 1:25:48 PM Referred By: Electronically Signed By:Micheal HERNANDEZ DO Transcribed By: MUS Signed By Micheal Hernandez DO 1 04/06/20 1325 [facility] HCG,Urineon 02-04-2021 Beta HCG ( test) Ql (U) Negative [facility] Comment on above: Order Comment: Name Collection Type:: Clean-Voided Midstream Result Comment: PERF ORMED BY: [place] [address] PATHOLOGIST TRAFFIC OBSERVER STEPHENIE THORPE M.D. Performed By: #### C OVID-19 JUNE, SOFIANEG, UHCG, ADDONUAPLUS #### [facility] [address] [place] [address] Hepatic Panelon 02-04-2021 Albumin [Mass/Vol] 4.1 g/dL Normal 3.2-5.5 [facility] Comment on above: Performed By: #### L IPASE, MG, HEPATIC, CBC, TSH3, BMP #### [facility] [address] [place] [address] Albumin/Globulin [Mass ratio] 1.3 {ratio} [facility] Comment on above: Performed By: #### L IPASE, MG, HEPATIC, CBC, TSH3, BMP #### [facility] [address] [place] [address] [place] ALP [Catalytic activity/Vol] 55 U/L Normal 32-92 [facility] Comment on above: Performed By: #### L IPASE, MG, HEPATIC, CBC, TSH3, BMP #### [facility] [address] [place] [address] [place] ALT [Catalytic activity/Vol] 23 U/L Normal 10-60 [facility] Comment on above: Performed By: #### L IPASE, MG, HEPATIC, CBC, TSH3, BMP #### [facility] [address] [place] [address] AST [Catalytic activity/Vol] 23 U/L Normal 10-42 [facility] Comment on above: Performed By: #### L IPASE, MG, HEPATIC, CBC, TSH3, BMP #### [address] Bilirubin [Mass/Vol] 1.2 mg/dL Normal 0.3-1.2 [facility] Comment on above: Performed By: #### L IPASE, MG, HEPATIC, CBC, TSH3, BMP #### [address] Bilirubin,Indirect 1.1 mg/dL Normal [facility] Comment on above: Performed By: #### L IPASE, MG, HEPATIC, CBC, TSH3, BMP #### [address] Bilirubin.indirect [Mass/Vol] 0.1 mg/dL Normal 0.0-0.4 [facility] Comment on above: Performed By: #### L IPASE, MG, HEPATIC, CBC, TSH3, BMP #### [address] Globulin (S) [Mass/Vol] 3.2 g/dL Normal [facility] Comment on above: Performed By: #### L IPASE, MG, HEPATIC, CBC, TSH3, BMP #### [address] Protein [Mass/Vol] 7.3 g/dL Normal 6.1-7.9 [facility] Comment on above: Performed By: #### L IPASE, MG, HEPATIC, CBC, TSH3, BMP #### [address] Lipaseon 02-04-2021 Lipase [Catalytic activity/Vol] 24.0 U/L Normal 22-51 [facility] Comment on above: Performed By: #### L IPASE, MG, HEPATIC, CBC, TSH3, BMP #### [facility] [address] Magnesiumon 02-04-2021 Magnesium [Mass/Vol] 2.1 mg/dL Normal 1.6-2.6 [facility] Comment on above: Performed By: #### L IPASE, MG, HEPATIC, CBC, TSH3, BMP #### [facility] [address] [place] [address] June Ag Negativeon 02-05-20 21 June Ag Negative Negative Normal Negative [facility] Comment on above: Result Comment: This is a duplicate June SARS Antigen (SATYA) result to be used for statistical tracking purpose only. PERFORMED BY: [place] [address] PATHOLOGIST TRAFFIC OBSERVER STEPHENIE THORPE M.D. Performed By: #### C OVID-19 JUNE, SOFIANEG, UHCG, ADDONUAPLUS #### [address] Thyroid Stimulating Hormoneo n 02-04-2021 TSH Qn 1.87 m[IU]/L Normal 0.45-5.33 [facility] Comment on above: Result Comment: PERF ORMED BY: [place] [address] PATHOLOGIST TRAFFIC OBSERVER STEPHENIE THORPE M.D. Performed By: #### L IPASE, MG, HEPATIC, CBC, TSH3, BMP #### [address] Flu A/B Ag Detectionon 06-20 Flu A/B Ag Detection Specimen Descriptio n .NASOPHARYNGEAL SWAB Special Requests NOT REPORTED Direct Exam POSITIVE for Influenza A Antigen NEGATIVE for Influenza B Antigen Report Status FINAL 06/20/2018 [facility] Comment on above: Performed By: #### F LUAD #### [facility] [address] [place] [address] Home Based Assistant: Avery Hanson MD PROCEDUREon 05-16-2017 [facility] Vital Signs Date Time Vital Sign Value Performing Clinician Wilmer lity 05-10-2023 10:40-0500 Body mass index (BMI) [Ratio] 31 kg/m2 Ramone Anders DO Work Phone: [facility] 05-10-2023 10:40-0500 Body weight 79.38 kg Ramone Anders DO Work Phone: [facility] 05-10-2023 10:40-0500 Diastolic blood pressure 68 mm[Hg] Ramone Anders DO Work Phone: [facility] 05-10-2023 10:40-0500 Systolic blood pressure 112 mm[Hg] Ramone Anders DO Work Phone: [facility] Encounters Encounter Date Encounter Type Care Provider Facility Start: 05-12-2023 Clinisync Result Encounter Ramone Anders DO Work Phone: [facility] Unsolicited Start: 05-12-2023 Clinisync Result Encounter Ramone Anders DO Work Phone: [facility] Unsolicited Start: 05-11-2023 Clinisync Result Encounter Ramone Anders DO Work Phone: [facility] Unsolicited Start: 05-11-2023 Clinisync Result Encounter Ramone Anders DO Work Phone: [facility] Unsolicited Start: 05-10-2023 End: 05-10-2023 ambulatory RAMONE ANDERS Not Available Start: 05-10-2023 End: 05-10-2023 flow sheet Ramone Anders DO Work Phone: [facility] Comment on above: Third trimester preg marcus Start: 05-03-2023 End: 05-03-2023 ambulatory RAMONE ANDERS Not Available Start: 2023 End: 2023 ambulatory RAMONE ANDERS Not Available Start: 04-19-2023 End: 04-19-2023 ambulatory RAMONE ANDERS Not Available Start: 04-12-2023 End: 04-12-2023 ambulatory RAMONE ANDERS Not Available Start: 04-06-2023 End: 04-06-2023 ambulatory JOVANY ISABEL Not Available Start: 03-23-2023 End: 03-23-2023 ambulatory JOVANY DEWITTEY Not Available Start: 03-08-2023 End: 03-08-2023 ambulatory RAMONE ANDERS Not Available Start: 02-22-2023 End: 02-22-2023 ambulatory JOVANY ISABEL Not Available Start: 11-12-2021 End: 11-12-[address] LENNY SEVILLA Facility:[facility] Start: 09-16-2021 End: 09-16-[address] LENNY SEVILLA Facility:[facility] Start: 04-29-2021 End: 04-29-[address] LENNY SEVILLA Facility:[facility] Start: 06-20-2018 End: 06-20-2018 Emergency department patient visit [facility] Start: 05-16-2017 Ambulatory [facility] Start: 05-16-2017 Ambulatory [facility] Procedures Date Procedure Procedure Detail Performing Clinician Start: 05-12-2023 ALL CBC WITH AUTO DIFF Ramone Anders DO Work Phone: Start: 05-11-2023 [facility] CBC WITH PLATEL ET NO DIFFERENTIAL Ramone Anders DO Work Phone: Start: 05-10-2023 Urnls dip stick/tabl et rgnt non-auto w/o micrscp Ramone Anders DO Work Phone: Start: 06-20-2018 [place] influenza [facility] HEMANT CARDOZO Plan of Treatment Date Care Activity Detail Author Start: 12-03-2022 Influenza vaccination Influenza Vacc ine (#1) [facility] Immunizations Immunization Date Immunization Notes Care Provider Fa cility 04-15-2021 Amelia SARS-CoV-2 Ramone Debi io DO Work Phone: [facility] 09-06-2019 meningococcal B vacc ine, fully recombinant Ramone Anders DO Work Phone: [facility] 09-06-2019 meningococcal polysaccharide (groups A, C, Y and W-135) diphtheria toxoid conjugate vaccine (MCV4P) Ramone Anders DO Work Phone: [facility] 01-02-2015 tetanus toxoid, redu chel diphtheria toxoid, and acellular pertussis vaccine, adsorbed Ramone Anders DO Work Phone: [facility] 05-31-2013 human papilloma viru s vaccine, quadrivalent Ramone Anders DO Work Phone: [facility] 02-01-2013 human papilloma viru s vaccine, quadrivalent [facility] 11-02-2012 hepatitis A vaccine, pediatric/adolescent dosage, 2 dose schedule Ramone Anders DO Work Phone: [facility] 11-02-2012 HPV, unspecified formulation Ramone Anders DO Work Phone: [facility] 11-02-2012 meningococcal polysaccharide (groups A, C, Y and W-135) diphtheria toxoid conjugate vaccine (MCV4P) Ramone Anders DO Work Phone: [facility] 09-18-2009 hepatitis A vaccine, pediatric/adolescent dosage, 2 dose schedule Ramone Anders DO Work Phone: [facility] 02-05-2009 novel Influenza-H1N1 -09, live virus for nasal administration Ramone Anders DO Work Phone: [facility] 06-28-2007 diphtheria, tetanus toxoids and acellular pertussis vaccine Ramone Anders DO Work Phone: [facility] 06-28-2007 measles, mumps and r ubella virus vaccine Ramone Anders DO Work Phone: [facility] 06-28-2007 poliovirus vaccine, inactivated Ramone Anders DO Work Phone: [facility] 06-28-2007 varicella virus vaccine Core y Anders DO Work Phone: [facility] 03-10-2007 influenza virus vacc ine, live, attenuated, for intranasal use Ramone Anders DO Work Phone: [facility] 03-10-2007 influenza virus vacc ine, unspecified formulation Ramone Anders DO Work Phone: [facility] 01-24-2007 influenza virus vacc ine, live, attenuated, for intranasal use Ramone Anders DO Work Phone: [facility] 08-02-2003 diphtheria, tetanus toxoids and acellular pertussis vaccine Ramone Anders DO Work Phone: [facility] 08-02-2003 haemophilus influenz ae type b vaccine, PRP-T conjugate Ramone Anders DO Work Phone: [facility] 08-02-2003 poliovirus vaccine, inactivated Ramone Anders DO Work Phone: [facility] 04-30-2003 measles, mumps and r ubella virus vaccine Ramone Anders DO Work Phone: [facility] 04-30-2003 pneumococcal conjuga te vaccine, 7 valent Ramone Anders DO Work Phone: [facility] 04-30-2003 varicella virus vaccine Core y Anders DO Work Phone: [facility] 01-22-2003 pneumococcal conjuga te vaccine, 7 valent Ramone Anders DO Work Phone: [facility] 01-22-2003 poliovirus vaccine, unspecified formulation Ramone Anders DO Work Phone: [facility] 2002 diphtheria, tetanus toxoids and acellular pertussis vaccine, unspecified formulation Ramone Anders DO Work Phone: [facility] 2002 haemophilus influenz ae type b vaccine, conjugate unspecified formulation Ramone Anders DO Work Phone: [facility] 2002 hepatitis B vaccine, pediatric or pediatric/adolescent dosage Ramone Anders DO Work Phone: [facility] 2002 pneumococcal conjuga te vaccine, 7 valent Ramone Anders DO Work Phone: [facility] 2002 poliovirus vaccine, unspecified formulation Ramone Anders DO Work Phone: [facility] 2002 diphtheria, tetanus toxoids and acellular pertussis vaccine, unspecified formulation Ramone Anders DO Work Phone: [facility] 2002 haemophilus influenz ae type b vaccine, conjugate unspecified formulation Ramone Anders DO Work Phone: [facility] 2002 pneumococcal conjuga te vaccine, 7 valent Ramone Anders DO Work Phone: [facility] 2002 diphtheria, tetanus toxoids and acellular pertussis vaccine, unspecified formulation Ramone Anders DO Work Phone: [facility] 2002 haemophilus influenz ae type b vaccine, conjugate unspecified formulation Ramone Anders DO Work Phone: [facility] 2002 hepatitis B vaccine, pediatric or pediatric/adolescent dosage Ramone Anders DO Work Phone: [facility] 2002 hepatitis B vaccine, pediatric or pediatric/adolescent dosage Ramone Anders DO Work Phone: [facility] Payers Date Payer Category Payer Medicaid [id number] 2023 Medicaid [employer] [place] [employer] [id number] 2023-Present [address] [place] [address] [id number] 2022 Unknown [id number] 2022 Unknown BCBS BCBS xxxxxx [id number] 2022-Present [phone] [address] [place] [address] [id number] 2018 Unknown [id number] 2002 Unknown [id number] 2002 Unknown [id number] 2002 Unknown [id number] 2002 Unknown [id number] 2002 Unknown [id number] 2002 Unknown [id number] 2002 Unknown [id number] [id number] 2002 Unknown [id number] 2002 Unknown [id number] 2002 Unknown [id number] [id number] 2002 Unknown [id number] 1976 Unknown [id number] 1976 Unknown [id number] 1959 Unknown [id number] Social History Date Type Detail Facility Start: 11-12-2022 Tobacco smoking stat [facility] Occasional tobacco smoker [facility] History of tobacco use Cigarette Smoker [facility] Start: 11-12-2022 Cigarettes smoked cu rrent (pack per day) - Reported 0.5 [facility] Start: 11-12-2022 Tobacco use and exposure Smoke less tobacco non-user [facility] Start: 05-10-2023 Alcohol intake Lifetime non-d ciera (finding) [facility] Start: 11-12-2022 Tobacco use panel [facility] Start: 08-18-2022 [facility] Start: 2000 Sex Assigned At Female [facility] Start: 09-15-2022 Gender identity Identifies as female gender (finding) [facility] History of Present illness Narrative 05-10-2023 Nataliya Killian LPN - 05/10/2023 10:30 AM EST Note Date & Type Note Facility 05-10-2023 History of Presen t illness Narrative Reason for Appointment: Patient ID: Deanna Isaac is a 23 y.o. female who presents for Routine Visit Patient presents today for Return OB appointment. Current Medications: has a current medication list which includes the following prescription(s): ketoconazole, ondansetron odt, and mv-min-fe fum-fa-dha. Medical History: Active Ambulatory Problems Diagnosis Date Noted Sinusitis 09/14/2022 Ventricular flutter (CMS/HCC) 09/14/2022 Acute pain of left knee 05/16/2017 Contusion of left knee 05/16/2017 Resolved Ambulatory Problems Diagnosis Date Noted No Resolved Ambulatory Problems Past Medical History: Diagnosis Date Acne BMI 23.0-23.9, adult History of chlamydia No family history on file. Social History Tobacco Use Smoking status: Some Days Packs/day: .5 Types: Cigarettes Smokeless tobacco: Never Substance Use Topics Alcohol use: Never Drug use: Never Past Surgical History: Procedure Laterality Date ADENOIDECTOMY 2006 MYRINGOTOMY W/ TUBES 2006 TONSILLECTOMY 2006 No Known Allergies Review of Systems: Review of Systems Constitutional: Negative. HENT: Negative. Eyes: Negative. Respiratory: Negative. Cardiovascular: Negative. Gastrointestinal: Negative. Genitourinary: Negative. Musculoskeletal: Negative. Skin: Negative. Neurological: Negative. All other systems reviewed and are negative. Hematological: Negative. Endocrine: Negative. Allergic/Immunologic: Negative. Objective Physical Exam Constitutional: Appearance: Normal appearance. She is well-developed. Genitourinary: Vulva normal. Cardiovascular: Rate and Rhythm: Normal rate and regular rhythm. Pulmonary: Effort: Pulmonary effort is normal. Breath sounds: Normal breath sounds. Abdominal: General: Bowel sounds are normal. There is no distension. Palpations: Abdomen is soft. Tenderness: There is no abdominal tenderness. There is no guarding or rebound. Musculoskeletal: General: No swelling. Normal range of motion. Right lower leg: No edema. Left lower leg: No edema. Neurological: Mental Status: She is alert and oriented to person, place, and time. Skin: General: Skin is warm and dry. Psychiatric: Mood and Affect: Mood normal. Behavior: Behavior normal. Vitals and nursing note reviewed. Exam conducted with a salesperson used cars present. Vitals: Estimated body mass index is 31 kg/m as calculated from the following: Height as of 11/12/22: 5' 3 . Weight as of this encounter: 175 lb. BP: 112/68 No LMP recorded. Patient is . Assessment/Plan Encounter Diagnosis Name Primary? Third trimester Patient presents today for a routine obstetrics appointment. Patient is currently 39w6d . Patient states she is doing well but has complaints of being tired due to current . Patient has verbalizes frequent movement. labor precautions was discussed/given and patient was instructed to perform kick counts three times a day. Signed induction consents Follow Up: Patient is to return to office Documented by Nataliya Killian LPN on behalf of: Ramone Mcnamara DO documented in this encounter [facility] Evaluation note Note Date & Type Note Facility Evaluation note Diagnosis Third trimester state, incidental documented in this encounter [facility] Summary Purpose Family History No Family History [...] DATE CREATED AUTHOR AUTHOR'S ORGANIZ ATION 06/11/2021 [facility] DATE CREATED AUTHOR AUTHOR'S ORGANIZ ATION 11/17/2021 [facility] DATE CREATED AUTHOR AUTHOR'S ORGANIZ ATION 05/11/2023 [facility] EPIC Reason for Visit (unrecogniz ed section and content) Reason Comments Routine Visit Care Teams (unrecognized sec tion and content) Sessions Clerk Relationship Specialty Start Date End Date Dwayne Mccullough MD [address] [facility] [address] [place] [address] PCP - General [facility] 09/16/22 Sessions Clerk Relationship Specialty Start Date End Date Dwayne Mccullough MD [address] [facility] [address] [place] [address] PCP - General [facility] 09/16/22 FOR RECORDS PERTAINING TO PATIENTS WHO ARE [...] BE BASED ON THE PRIMARY CLINICAL RECORDS. [facility]. provides no warranty or guarantee of the accuracy or completeness of information in this document.
--- NOTE | 2023-06-13 10:55 | CA_ITS ---
[facility] Test Date: 2023-07-13 Pat Name: CAROLYNN MACKEY Department: Room: - Gender: Female Showplace Manager: : 2000 Requested By: TAYE BREAUX Order Number: [id number] Reading MD: SARAH CORDOVA Interpretive Statements Predominant rhythm is sinus with average rate of 74 bpm Tachycardia - max rate of 179 bpm (sinus tachycardia) - longest episode of 52min 20sec with rates between 116-134 bpm Bradycardia (24% total burden) - min rate of 39 bpm - longest epsisode of 1h 5min 11sec with rates between 47-55 bpm Ventricular ectopy - 4,687 PVC, < 1% total Patient triggered events: 11 - associated with ventricular ectopy - associated with symptoms of CP, palpitations, lightheadedness - associated with rates of 101, 100, 108 and the remainder NSR Impression: Predominant rhythm is sinus with average rate of 74 bpm Fastest rate of 179 bpm (sinus tachycardia) and slowest rate of 39 bpm 4,687 PVC No atrial fibrillation No pauses or blocks Electronically Signed On 07-15-2023 7:14:42 EDT by SARAH CORDOVA
== END 2023-06-13 10:35 | disposition home or self-care (01) ==
LOC: CARD 10:35
PROVIDERS: PCP Family Medicine; Visit Provider Nurse Practitioner Family
DX: I49.02 Ventricular flutter (principal); R00.2 Palpitations
CPT/HCPCS: 93246

== ENCOUNTER 2024-03-13 11:30 | Outpatient (OUT) | payer BC, OTHER, SELFPAY ==
[2024-03-13 12:17] LABS: Alanine Aminotransferase 24 U/L (14-59); Aspartate Amino Transferase 14 U/L (15-37)
== END 2024-03-13 11:31 | disposition home or self-care (01) ==
LOC: LAB 11:32
PROVIDERS: PCP Family Medicine
DX: B35.1 Tinea unguium (principal)
CPT/HCPCS: 36415; 84450; 84460

== ENCOUNTER 2024-04-13 15:33 | Outpatient (OUT) | payer BC, OTHER, SELFPAY ==
--- NOTE | 2024-04-13 15:36 | US_ITS ---
The [address] [address] Patient Name: CAROLYNN MACKEY MRN: [id number] date: 2000 Sex: F Assigned Patient Location: US Current Patient Location: Accession/Order Number: [id number] Exam Date: 04/13/2024 15:43 Report Date: 04/14/2024 09:29 At the request of: SKINNY PARKER Procedure: US soft tissue head and neck EXAMINATION: US soft tissue head and neck HISTORY: MASS IN NECK R22.1 COMPARISON: No relevant comparison available. FINDINGS: Several lymph nodes within the upper right neck, level 2, corresponding to patient's palpable area of concern, largest is 3.0 x 0.8 x 1.7 cm. All appear to maintain a relatively normal fatty hilum. US/US soft tissue head and neck IMPRESSION: 1. Several lymph nodes within upper right neck corresponding to patient's palpable area. No overtly suspicious lymph nodes. Consider follow-up to document clearing. Electronically authenticated by: LYNNETTE KENNEDY Date: 04/14/2024 09:29
== END 2024-04-13 15:34 | disposition home or self-care (01) ==
LOC: US 15:34
PROVIDERS: PCP Family Medicine; Visit Provider Nurse Practitioner Family
DX: R22.1 Localized swelling, mass and lump, neck (principal)
CPT/HCPCS: 76536

== ENCOUNTER 2024-07-16 10:09 | Outpatient (OUT) | payer BC, OTHER, SELFPAY ==
[2024-07-16 10:41] LABS: Basophils Percent Auto 0.4 % (0.2-2.0); Eosinophils Percent Auto 0.9 % (0.9-7.0); Hematocrit 37.5 % (36.0-48.0); Hemoglobin 12.8 g/dL (12.0-16.0); Immature Granulocytes Abs Auto 0.01 10^3/uL (0.00-0.03); Immature Granulocytes Pct Auto 0.2 % (0.0-0.5); Lymphocytes Percent Auto 43.4 % (20.5-60.0); Mean Corpuscular HGB Conc 34.1 g/dL (29.9-35.2); Mean Platelet Volume 9.2 fL (9.5-13.5); Monocytes Absolute Auto 0.3 10^3/uL (0.3-0.8); Monocytes Percent Auto 7.1 % (1.7-12.0); Neutrophils Absolute Auto 2.2 10^3/uL (1.4-6.5); Platelet Count 252 10^3/uL (150-450); Red Blood Count 4.26 10^6/uL (4.20-5.40); Red Cell Distribution Width 12.3 % (11.0-15.0); White Blood Count 4.5 10^3/uL (4.0-11.0)
[2024-07-16 11:00] LABS: Estimated Average Glucose 94 mg/dL; Glycohemoglobin A1C 4.9 % (4.5-6.2)
[2024-07-16 11:13] LABS: HCG Quantitative <1 mIU/mL
[2024-07-16 11:21] LABS: Free T4 1.07 ng/dL (0.76-1.46)
[2024-07-17 04:08] LABS: FSH 6.8 mIU/mL (.); Luteinizing Hormone(LH) 40.4 mIU/mL (.)
== END 2024-07-16 10:10 | disposition home or self-care (01) ==
LOC: LAB 10:11
PROVIDERS: PCP Family Medicine; Visit Provider Nurse Practitioner Family
DX: E28.2 Polycystic ovarian syndrome (principal); N92.6 Irregular menstruation, unspecified
CPT/HCPCS: 36415; 82397; 82627; 83001; 83002; 83036; 84439; 84443; 84702; 85025